=== PATIENT | female | born 1955 | race American Indian/Alaskan Native ===

== ENCOUNTER 2016-06-26 23:47 | Inpatient (IN) | payer MEDICARE ==
[2016-06-27 01:39] LABS: Basophils % (Auto) 1.3 % (0.0-1.8); Eosinophils % (Auto) 4.2 % (0.0-4.3); Hematocrit 38.6 % (30.3-42.9); Hemoglobin 12.8 gm/dl (10.1-14.3); Mean Corpuscular HGB Conc 33 % (30-34); Mean Corpuscular Hemoglobin 32 pg (28-32); Mean Corpuscular Volume 96 fl (79-97); Platelet Count 192 K/mm3 (140-440); Red Blood Count 4.01 M/mm3 (3.65-5.03); Red Cell Distribution Width 13.8 % (13.2-15.2); White Blood Count 4.2 K/mm3 (4.5-11.0)
[2016-06-27 01:56] LABS: Blood Urea Nitrogen 18 mg/dL (7-17); Calcium 9.4 mg/dL (8.4-10.2); Carbon Dioxide 30 mmol/L (22-30); Chloride 101.7 mmol/L (98-107); Glucose 143 mg/dL (65-100); Potassium 3.7 mmol/L (3.6-5.0); Sodium 144 mmol/L (137-145)
[2016-06-27 02:00] LABS: Anion Gap 16 mmol/L
[2016-06-27] MEDS ORDERED: NACL ONE (07:24)
--- NOTE | 2016-06-27 07:29 | Emergency Department Report ---
HPI - General Chief Complaint: Chest Pain Time Seen by Provider: 06/27/16 06:56 - HPI HPI: The patient is a 60-year-old female who presents for valuation of chest pain. The patient reports chest pain for the past one day, midsternal, pressure-like in quality, radiating into the neck and back, 8 out of 10 in severity. The patient denies fever, dyspnea, syncope, hemoptysis, unilateral leg swelling, recent immobilization, history of DVT or PE, recent cancer. She states that she has not received a stress test within the past 10-11 months. ED Past Medical Hx - Past Medical History Previous Medical History?: Yes Hx Hypertension: Yes Hx Congestive Heart Failure: Yes Hx of Cancer: Yes (L radical mastectomy) Additional medical history: defibrillator since , has never fired - Surgical History Past Surgical History?: Yes Hx Breast Surgery: Yes (L radical mastectomy) - Social History Smoking Status: Current Every Day Smoker Substance Use Type: Alcohol ED Review of Systems ROS: Stated complaint: CHEST PAIN Other details as noted in HPI Constitutional: denies: fever ENT: denies: throat or neck pain Respiratory: denies: cough, shortness of breath Cardiovascular: reports chest pain Endocrine: denies unexplained weight loss or gain Gastrointestinal: denies: abdominal pain, nausea Genitourinary: denies: dysuria Musculoskeletal: denies: leg swelling Skin: denies: rash Neurological: denies: headache Hematological/Lymphatic: denies: easy bleeding or easy bruising Psych: denies sadness or hopelessness Physical Exam - Physical Exam Vital Signs: Vital Signs 06/27/16 06/27/16 00:45 06:15 Temperature 98.6 F 98.9 F Pulse Rate 90 85 Respiratory 18 18 Rate Blood Pressure 155/94 Blood Pressure 148/77 [Right] O2 Sat by Pulse 100 99 Oximetry Physical Exam: General: well-nourished, well-developed, no acute distress Head: Normocephalic, atraumatic Eyes: normal sclera ENT: Mucous membranes are pink and moist Neck: trachea midline, neck supple, No neck stiffness, no cervical adenopathy Respiratory: Breath sounds equal bilaterally, no wheezing, rales, or rhonchi Cardio: S1 and S2 present, no murmurs, rubs, gallops, capillary refill is brisk Abdomen: Normoactive bowel sounds, soft abdomen, no rigidity, no guarding or rebound tenderness Musc: No pitting edema Skin: No rash Neuro: no facial drooping, normal speech Psych: Normal affect ED Course Vital Signs 06/27/16 06/27/16 00:45 06:15 Temperature 98.6 F 98.9 F Pulse Rate 90 85 Respiratory 18 18 Rate Blood Pressure 155/94 Blood Pressure 148/77 [Right] O2 Sat by Pulse 100 99 Oximetry ED Medical Decision Making - Lab Data Result diagrams: 06/27/16 01:15 06/27/16 01:15 - Medical Decision Making The patient was seen and examined by myself. The patient is placed on a hall monitor and continuous pulse ox. On initial evaluation, the patient was found to be in no distress. EKG was negative for findings suggestive of acute cardiac infarct. The patient is given an aspirin tablet. The patient is given IV morphine for her chest pain. Labs and imaging are obtained. The patient is given IV morphine for her chest pain. Chest x-ray is negative for pneumothorax , focal consolidation, pulmonary vascular congestion, pleural effusion, or other obvious acute cardiopulmonary disease process. Lab results were non- revealing including negative troponin, WBC, hemoglobin, hematocrit, electrolytes , renal function. CT angiogram of the chest is negative for dissection, pulmonary embolism, or other emergent acute disease process. The patient was reevaluated and reported that their symptoms were improved. As the patient has chest pain and risk factors for development of acute coronary event, the patient will be admitted for close cardiopulmonary monitoring, serial troponins, and evaluation by cardiology. The on-call hospitalist service was contacted. They agreed to admit the patient for further treatment and close monitoring. The ED admit order was placed. The patient was admitted in guarded condition. Critical care attestation.: If time is entered above; I have spent that time in minutes in the direct care of this critically ill patient, excluding procedure time. ED Disposition Clinical Impression: Acute chest pain Disposition: OP ADMITTED IP TO THIS HOSP Is pt being admited?: Yes Does the pt Need Aspirin: Yes Condition: Undetermined Instructions: Chest Pain (ED) Referrals: PRIMARY CARE, [Primary Care Provider] - 3-5 Days Time of Disposition: 08:39
--- NOTE | 2016-06-27 09:30 | Admit Criteria Form ---
Admission Criteria Documentation: CARDIOLOGY GRG Clinical Indications for Admission to Inpatient Care ( Place 'X' for any and all applicable criteria): Hospital admission is needed for appropriate care of the patient because of ANY ONE of the following (1): [ ] I. Hemodynamic instability as indicated by ALL of the following (1)(2)(3) (4)(5) [ ]a) Vital signs or other findings not as expected for chronic patient condition or baseline [ ]b) Instability indicated by ANY ONE of the following: [ ]i) Hypotension [ ]ii) Symptomatic Tachycardia unresponsive to treatment ( e.g., analgesia, fluids, sedation as indicated) [ ]iii) Inadequate perfusion indicated by ANY ONE of the following: [ ] 1) Lactic acidosis (> 2 mmol/L) [ ] 2) New abnormal capillary refill (> 3 seconds) [ ] 3) Reduced urine output [ ] 4) New altered mental status [ ]iv) Orthostatic vital sign changes unresponsive to treatment (e.g., fluids) [ ]v) IV inotropic or vasopressor medication required to maintain adequate blood pressure or perfusion [ ] II. Severe heart failure as indicated by ANY ONE of the following(17)(18) [ ]a) Respiratory distress [ ]b) Hypotension [ ]c) Anasarca (refractory to outpatient therapy) [ ]d) Cardiac arrhythmias of immediate concern [ ]e) Myocardial ischemia [ ] III. Cardiac arrhythmias or findings of immediate concern indicated by ANY ONE of the following (19)(20): [ ] a) Heart rhythms that are inherently dangerous or unstable indicated by ANY ONE of the following (21)(22)(23): [ ] i) Resuscitated ventricular fibrillation or cardiac arrest [ ] ii) Ventricular escape rhythm [ ] iii) Sustained ventricular tachycardia (30 seconds or more of ventricular rhythm at greater than 100 beats per minute) [ ] iv) Nonsustained ventricular tachycardia and ANY ONE of the following: [ ] 1) Suspected cardiac ischemia as cause or consequence of ventricular tachycardia [ ] 2) In setting of acute myocarditis [ ] b) Unstable cardiac conduction defects indicated by ANY ONE of the following(23)(24)(25) [ ] i) Type II second-degree atrioventricular block [ ]ii) Third-degree atrioventricular block [ ]iii) New-onset left bundle branch block with suspected myocardial ischemia [ ]c) Any heart rhythm and ANY ONE of the following (21)(22)(26)(27) (28) [ ] i) Continuous long-term ECG monitoring needed (e.g., initiation of drug requiring monitoring for more than 24 hours) [ ] ii) Patient has automatic implanted cardioverter defibrillator that is repeatedly firing, malfunctioning, or in need of immediate adjustment of settings beyond the scope of ambulatory or observation care [ ]d) Heart rhythms of concern due to ANY ONE of the following: [ ] i) Hypotension [ ] ii) Respiratory distress [ ] iii) Association with other significant symptoms (e.g., bradycardia with syncope or ongoing dizziness, supraventricular tachycardia with chest pain (14)(15)(17) [ ] IV. Monitoring for cardiac contusion beyond the scope of observation care needed [A](30)(31)(32) [ ] V. Surgical or device complication (e.g., valve replacement complication , pacemaker dysfunction) (35)(41)(44)(45)(46) [ ] . Inpatient palliative care needed. [B](49) Also use Inpatient Palliative Care Criteria [ ] VII. Nonbacterial thrombotic (marantic) endocarditis (36)(43)(47)(48) [ X] VIII. Cardiology condition, symptom, or finding for which emergency and observation care has failed or are not considered appropriate. [ ] IX. Acute valvular disease requiring inpatient as indicated by ANY ONE of the following (41) [ ]a) Acute valvular regurgitation (42) [ ]b) Noninfectious valvulitis (43) [ ]c) Obstructive valve thrombosis [ ]d) Paravalvular leak [ ]e) Other significant valvular disorder remaining after emergency or observation level of care (as appropriate) [ ]X. Pericardial disease requiring inpatient treatment as indicated by ANY ONE of the following (33)(34)(35)(36)(37) [ ]a) Suspected tamponade (38)(39)(40) [ ]b) Hemopericardium [ ]c) Other significant pericardial disorder remaining after emergency or observation level of care (as appropriate) [ ] XI. Cardiac ischemia beyond scope of emergency and observation care. [ ] XII. Hypertension requiring inpatient treatment as indicated by ANY ONE of the following (6)(7)(8) [ ]a) SBP greater than 220 mm Hg or DBP greater than 120 mmHg despite treatment [ ]b) SBP greater than 140 mm Hg or DBP greater than 100 mm Hg with evidence of acute end organ damage as indicated by ANY ONE of the following [ ] i) Altered mental status [ ] ii) Acute renal failure as indicated by new onset of ANY ONE of the following (9)(10)(11)(12)(13) [ ]1) 3-fold rise in serum creatinine from baseline [ ]2) Serum creatinine greater than 4 mg/dL ( 354 micromoles/L) with acute rise greater than 0.5 mg/dL (44.2 micromoles/L) [ ]3) Reduction of more than 75% in estimated glomerular filtration rate from baseline [ ]4) Estimated glomerular filtration rate less than 35 mL/min/1.73m2 (0.59 mL/sec/1.73m2) in child up to 18 years of age [ ]5) Cessation of urine output indicated by ALL of the following [ ]A. Adequate volume status [ ]B. Inadequate urine output as indicated by ANY ONE of the following [ ]a. Urine output less than 0.3 mL/kg/hr for 24 hours [ ]b. Anuria (urine output less than 0.1 mL/kg/hr) for 12 hours [ ] iii) Aortic dissection [ ] iv) Myocardial Ischemia [ ] v) Left ventricular heart failure [ ]vi) Retinal Hemorrhage [ ]vii) Other significant finding [ ]c) Hypertension in child requiring inpatient treatment as indicated by ALL of the following(14)(15)(16) [ ] i) Outpatient treatment not effective, not available, or not appropriate [ ]ii) SBP or DBP greater than 95th percentile for age [ ]iii) Evidence of acute end organ damage as indicated by ANY ONE of the following [ ]1) Altered mental status [ ]2) Acute renal failure as indicated by new onset of ANY ONE of the following(9)(10)(11)(12)(13) [ ]A. 3-fold rise in serum creatinine from baseline [ ]B. Serum creatinine greater than 4 mg/dL (354 micromoles/L) with acute rise greater than 0.5 mg/dL (44.2 micromoles/L) [ ]C. Reduction of more than 75% in estimated glomerular filtration rate from baseline [ ]D. Estimated glomerular filtration rate less than 35 mL/min/1.73m2 (0.59 mL/sec/1.73m2) in child up to 18 years of age [ ]E. Cessation of urine output indicated by ALL of the following [ ]a. Adequate volume status [ ]b. Inadequate urine output as indicated by ANY ONE of the following [ ]i) Urine output less than 0.3 mL/kg/hr for 24 hours [ ]ii) Anuria ( urine output less than 0.1 mL/kg/hr) for 12 hours [ ]3) Severe headache [ ]4) Visual disturbance [ ]5) Retinal hemorrhage [ ]6) Other significant finding [ ]XIII. Complications of transplanted heart indicated by ANY ONE of the following(61): [ ]a) Acute graft rejection requiring inpatient management (eg, intravenous immunosuppression)(62)(63) [ ]b) Acute graft heart failure indicated by ANY ONE of the following(64): [ ]i) Hemodynamic instability [ ]ii) Cardiac arrhythmias of immediate concern [ ]iii) Pulmonary edema that is very severe (eg, mechanical ventilation needed, imminent or likely, need for 100% oxygen to keep oxygen saturation above 90%) [ ]iv) Pulmonary edema that is persistent as indicated by ALL of the following: [ ]1) New need for oxygen therapy to keep oxygen saturation above 90% (or increased FiO2 need from baseline) [ ]2) Has not improved sufficiently with emergency department or observation care IV diuretics or other heart failure treatments[E] [ ]v) Altered mental status that is severe or persistent [ ]vi) Increased creatinine (new on laboratory test) with reduction of more than 50% in estimated glomerular filtration rate from baseline [ ]vii) Progressively (ongoing) rising creatinine (known from past laboratory test) with reduction of more than 25% in estimated glomerular filtration rate from baseline [ ]viii) Acute renal failure [ ]ix) Acute peripheral ischemia (eg, examination shows pulseless, cool, mottled, or cyanotic extremity) [ ]x) Pulmonary artery catheter monitoring needed [ ]xi) Other sign or symptom of heart failure requiring inpatient treatment (ie, too severe or not responsive to outpatient and observation care treatment) [ ]c) Infection requiring inpatient management (eg, Hemodynamic instability, need for intravenous antimicrobial treatment)(66)(67)(68)(69)(70) [ ]d) Cardiac allograft vasculopathy requiring inpatient management ( eg evidence of cardiac ischemia)(71) [ ]e) Other complication of transplanted heart (eg, stroke, severe pulmonary hypertension, severe valvular dysfunction) requiring inpatient management(72) The original [facility] [employer] content created by [facility] has been revised. The portions of the content which have been revised are identified through the use of italic text or in bold, and [facility] has neither reviewed nor approved the modified material. All other unmodified content is copyright [email or web address]. Please see references footnoted in the original [email or web address] edition 2016 Admission Criteria Met: Yes
[2016-06-27] MEDS ORDERED: ZOFRAN IV ONE (10:38)
[2016-06-27] MEDS ORDERED: BABY ASPIRIN PO ONE (10:38)
[2016-06-27] MEDS ORDERED: MORPHINE IV ONE (10:38)
--- NOTE | 2016-06-27 10:46 | Cat Scan Report ---
CTA CHEST: INDICATION: Chest pain. Breast cancer, left mastectomy. COMPARISON: 02/02/2016 PET/CT images. FINDINGS: Chest CTA performed following intravenous administration of 100 cc of Omnipaque 350. Rotational MIP's also obtained. Mild cardiomegaly again noted as also right AICD with single ventricular lead, creating some streak artifact. Mild aortic arch calcifications. No effusions or size significant adenopathy. Patent airway. Unremarkable great vessels without suspicious pulmonary arterial filling defects, to the extent assessed. Stable thyroid. Mild scarring in inferior aspect of the left upper lobe and in the right middle lobe again noted as also an approximately 1.6 cm left upper lobe pneumatocele posteriorly. No focal suspicious lung masses. Nonspecific distal esophageal wall thickening, not excluded for gastroesophageal reflux and/or hiatal hernia, amongst others. Left mastectomy also again noted. Stable approximately 2 cm slightly heterogeneous right adrenal benign mass/nodule, also unchanged since March 2009 CT. Multilevel thoracic spondylosis, including spurring and disc narrowing. Approximately 1.3 cm craniocaudal elongated sclerotic focus in T7 vertebral body on the right is also stable since 2008. CONCLUSION: No acute chest CT abnormality or evidence of pulmonary embolism with various stable incidental findings, as above. Thank you for the opportunity to participate in this patient's care.
[2016-06-27] MEDS ORDERED: TYLENOL PO ONE (10:53)
--- NOTE | 2016-06-27 11:35 | History and Physical Report ---
History of Present Illness Date of examination: 06/27/16 Date of admission: 06/27/16 Chief complaint: chest pain History of present illness: Patient is 60-year-old with history of cardiomyopathy, status post AICD placement, CHF, hypertension. She presents with chest pain for 3 days. chest pain is 8 out of 10 sometimes sharp sometimes like a pressure. On questioning and asking her to point, pain is in junction between, the mid lower chest and upper epigastric region. Chest pain is worse on exertion and is also sometimes worse on eating. She also complains of a headache she denies any fever. Chest pain sometimes associates it with shortness of breath. In ED, 2 sets of cardiac enzymes are negative. Past History Past Medical History: heart failure (chronic systolic CHF), hypertension, other (Cardiomyopathy s/p AICD placement) Past Surgical History: mastectomy, Other (AICD in 2008, ulnar nerve surg) Social history: single, smoking (smoke half pack ciagerettes daily), alcohol abuse (ocassionally), full code Family history: cancer, diabetes Medications and Allergies Allergies Allergy/AdvReac Type Severity Reaction Status Date / Time No Known Allergies Allergy Verified 06/27/16 07:30 Review of Systems All systems: negative (No fever, no urinaru symptoms,no cough. All other systems reviewed and neg) Exam - Constitutional Vitals: Temp Pulse Resp BP Pulse Ox 98.9 F 80 16 147/82 99 06/27/16 06:15 06/27/16 10:35 06/27/16 10:35 06/27/16 10:35 06/27/16 06:15 General appearance: Present: no acute distress, well-nourished - EENT Eyes: Present: PERRL, EOM intact ENT: hearing intact, clear oral mucosa - Neck Neck: Present: supple, normal ROM - Respiratory Respiratory effort: normal Respiratory: bilateral: CTA, negative: diminished, rales, rhonchi, wheezing - Cardiovascular Rhythm: regular Heart Sounds: Present: S1 & S2 (s1 and S2 reg, no murmurs rubs or gallops) - Extremities Extremities: no ischemia, No edema, normal temperature, normal color - Abdominal General gastrointestinal: Present: soft, tender (tender epigastric region), non- distended, normal bowel sounds Localized gastrointestinal: tender: epigastric periumbilical - Integumentary Integumentary: Present: clear, warm, dry - Musculoskeletal Musculoskeletal: strength equal bilaterally - Psychiatric Psychiatric: appropriate mood/affect, intact judgment & insight - Neurologic Neurologic: moves all extremities, other (AAO x 3, no focal neurologic signs) Results - Labs CBC & Chem 7: 06/27/16 01:15 06/27/16 01:15 Labs: Abnormal lab results 06/27/16 06/27/16 Range/Units 01:15 01:15 WBC 4.2 L (4.5-11.0) K/mm3 [place] % (Auto) 8.2 H (0.0-7.3) % BUN 18 H (7-17) mg/dL Glucose 143 H (65-100) mg/dL Assessment and Plan Chest pain. Admit to rule out acute coronary syndrome. Two sets of cardiac enzymes are negative. Continue aspirin. Add Nitropaste topically. Consult Dr. Luna her manager cost Epigastric pain. The chest pain she is referring to is actually in the junction between the lower chest and upper epigastric region. May be due to GERD or gastritis, in addition to poss acute coronary syndrome. Start Protonix daily. She may need GI evaluated him as an outpatient. Cardiomyopathy status post AICD placement Chronic systolic CHF. There is no acute exacerbation. Home med list is not yet available. We'll start Coreg 6.25 mg by mouth twice a day Hypertension. BP stable. History of breast cancer. DVT prophylaxis with heparin Full CODE STATUS. Hospitalist to reconcile home meds when list available.
[2016-06-27] MEDS ORDERED: DULCOLAX PR PRN (11:36)
[2016-06-27] MEDS ORDERED: TYLENOL PO PRN (11:36)
[2016-06-27] MEDS ORDERED: ZOFRAN IV PRN (11:36)
[2016-06-27] MEDS ORDERED: NORCO 5/325 PO PRN (11:41)
[2016-06-27] MEDS ORDERED: NITROSTAT SL PRN (11:42)
[2016-06-27] MEDS ORDERED: SODIUM CHLORIDE FLUSH SYRINGE 10 ML IV PRN (11:42)
[2016-06-27] MEDS: NITRO-BID 2% TP SCH ×2 (12:08→19:40)
[2016-06-27] MEDS: PROTONIX PO SCH (12:09)
--- NOTE | 2016-06-27 12:47 | Consultation ---
History of Present Illness Consult date: 06/27/16 Requesting physician: JACQUELIN ARMAS Consult reason: chest pain History of present illness: The patient is a 60 year old female who is followed by Dr. Blair in the office with a history of chronic systolic heart failure, non-ischemic cardiomyopathy s/ p ICD, hypertension, tobacco use who presented with complaints of substernal chest pain ongoing for the past 3 days. The describes the pain as both sharp and pressure like and states that it has been constant but is worse after eating and swallowing. Radiation to her right neck. She has chronic shortness of breath and dyspnea on exertion which is unchanged. Troponin negative x 2. Chest CTA unremarkable. Cardiac cath done in 2007 revealed normal coronaries. Stress test done 06/2013 was negative for ischemia. Echo done 06/2013 showed EF 35 %. Past History Past Medical History: heart failure (chronic systolic), hypertension, other ( breast CA, non-ischemic cardiomyopathy) Past Surgical History: mastectomy, Other (AICD implantation ) Social history: smoking (smokes 1/2 PPD). denies: alcohol abuse, prescription drug abuse, IV drug use Family history: no significant family history Medications and Allergies Allergies Allergy/AdvReac Type Severity Reaction Status Date / Time No Known Allergies Allergy Verified 06/27/16 07:30 Active Meds: Active Medications Acetaminophen (Tylenol) 650 mg PO Q4H PRN PRN Reason: Pain MILD(1-3)/Fever >100.5/MAO Acetaminophen/Hydrocodone Bitart ([place]arrison 5/325) 1 each PO Q6H PRN PRN Reason: Pain, Moderate (4-6) Aspirin (Ecotrin) 325 mg PO QDAY RUTHY Bisacodyl (Dulcolax) 10 mg DE QDAY PRN PRN Reason: Constipation unrelieved by MOM Heparin Sodium (Porcine) (Heparin) 5,000 unit SUB-Q Q8HR RUTHY Magnesium Hydroxide (Milk Of Magnesia) 30 ml PO Q4H PRN PRN Reason: Constipation Nitroglycerin (Nitrostat) 0.4 mg SL Q5M PRN PRN Reason: Chest Pain Nitroglycerin (Nitro-Bid 2%) 0.5 inch TP Q6H RUTHY PRN Reason: Protocol Last Admin: 06/27/16 12:08 Dose: 0.5 inch Ondansetron HCl (Zofran) 4 mg IV Q8H PRN PRN Reason: nausea or vomiting Pantoprazole Sodium (Protonix) 40 mg PO QDAY RUTHY Last Admin: 06/27/16 12:09 Dose: 40 mg Sodium Chloride (Sodium Chloride Flush Syringe 10 Ml) 10 ml IV PRN PRN PRN Reason: LINE FLUSH Review of Systems Constitutional: no fever, no chills Ears, nose, mouth and throat: no nasal congestion, no nasal discharge, no sinus pressure Cardiovascular: chest pain, shortness of breath, dyspnea on exertion Respiratory: shortness of breath, dyspnea on exertion, no congestion, no wheezing Gastrointestinal: no abdominal pain, no nausea, no vomiting, no diarrhea, no constipation Genitourinary Female: no dysuria, no urgency Musculoskeletal: no neck stiffness, no neck pain, no myalgias Integumentary: no rash, no pruritis Neurological: no parathesias, no numbness, no tingling, no headaches Endocrine: no cold intolerance, no heat intolerance Hematologic/Lymphatic: no easy bruising, no easy bleeding Allergic/Immunologic: no urticaria, no wheezing Physical Examination Vital Signs Temp Pulse Resp BP Pulse Ox 98.6 F 90 18 155/94 100 06/27/16 00:45 06/27/16 00:45 06/27/16 00:45 06/27/16 00:45 06/27/16 00:45 General appearance: no acute distress HEENT: Positive: PERRL, Normocephaly, Mucus Membranes Moist Neck: Positive: neck supple, trachea midline Cardiac: Positive: Reg Rate and Rhythm, S1/S2 Lungs: Positive: clear to auscultation Neuro: Positive: Grossly Intact Abdomen: Positive: Soft, Active Bowel Sounds. Negative: Tender Skin: Positive: Clear. Negative: Rash Extremities: Present: normal. Absent: edema Results 06/27/16 01:15 06/27/16 01:15 CBC 06/27/16 Range/Units 01:15 WBC 4.2 L (4.5-11.0) K/mm3 RBC 4.01 (3.65-5.03) M/mm3 Hgb 12.8 (10.1-14.3) gm/dl Hct 38.6 (30.3-42.9) % Plt Count 192 (140-440) K/mm3 Lymph # 1.4 (1.2-5.4) K/mm3 [place] # 0.3 (0.0-0.8) K/mm3 Eos # 0.2 (0.0-0.4) K/mm3 Baso # 0.1 (0.0-0.1) K/mm3 Comprehensive Metabolic Panel 06/27/16 Range/Units 01:15 Sodium 144 (137-145) mmol/L Potassium 3.7 (3.6-5.0) mmol/L Chloride 101.7 (98-107) mmol/L Carbon Dioxide 30 (22-30) mmol/L BUN 18 H (7-17) mg/dL Creatinine 0.9 (0.7-1.2) mg/dL Glucose 143 H (65-100) mg/dL Calcium 9.4 (8.4-10.2) mg/dL - Imaging and Cardiology Echo: pending EKG: image reviewed EKG interpretations - Telemetry EKG Rhythm: Sinus Rhythm - EKG Sinus rhythms and dysrhythmias: sinus rhythm Chamber hypertrophy or enlargement: left ventricular hypertro Repolarization changes or abnormalities: repolarization abn secondary to ventricular hypertrophy Assessment and Plan Atypical chest pain, possibly GI related? troponin negative x 2 no acute EKG changes obtain echo Lexiscan thallium stress test in am Chronic systolic heart failure EF ~ 35% in 2013 currently euvolemic await repeat echo findings continue coreg, losartan Non-ischemic cardiomyopathy [facility] 2007: normal coronaries Hypertension stable continue coreg, losartan Tobacco use counselled on cessation Await echo findings. Lexiscan thallium stress test in am. Further recommendations to follow. The patient has been seen in conjunction with Dr. Adams who agrees with the assessment and plan of care. Thank you Dr. Armas for allowing us to participate in the care of this patient.
[2016-06-27] MEDS: HEPARIN SUB-Q SCH (14:06)
[2016-06-27 14:59] LABS: Creatine Kinase MB 1.9 ng/mL (0.0-4.0)
[2016-06-27 15:01] LABS: Creatine Kinase 69 units/L (30-135)
[2016-06-27] MEDS: COREG PO SCH (16:59)
--- NOTE | 2016-06-27 17:33 | Echocardiography Report ---
Transthoracic Echocardiogram Indication: Chest pain BP: 125/67 Conclusions *Moderate global hypokinesis of the left ventricle is observed. *The estimated ejection fraction is 35-40%. *Abnormal left ventricular diastolic filling is observed, consistent with impaired relaxation. *The left atrium is mildly dilated. *The right ventricular global systolic function is normal. *The right atrium appears normal. *A pacemaker wire is visualized in the right atrium. *There is trace of aortic regurgitation. *There is mild mitral regurgitation. *There is moderate tricuspid regurgitation. *The right ventricular systolic pressure is calculated at 55 mmHg. *There is evidence of moderate pulmonary hypertension. *The inferior vena cava appears normal in size. *A pacemaker wire is visualized in the right ventricle. Findings Left Ventricle: The left ventricular chamber size is normal. Moderate global hypokinesis of the left ventricle is observed. Global left ventricular systolic function is moderately decreased. The estimated ejection fraction is 35-40%. Abnormal left ventricular diastolic filling is observed, consistent with impaired relaxation. Left Atrium: The left atrium is mildly dilated. Right Ventricle: The right ventricular cavity size is normal. The right ventricular global systolic function is normal. A pacemaker wire is visualized in the right ventricle. Right Atrium: The right atrium appears normal. A pacemaker wire is visualized in the right atrium. The interatrial septum appears normal. Aortic Valve: The aortic valve structure is normal. There is trace of aortic regurgitation. There is no evidence of aortic stenosis. Mitral Valve: The mitral valve leaflets appear normal. There is mild mitral regurgitation. There is no evidence of mitral stenosis. Tricuspid Valve: The tricuspid valve leaflets are normal. There is moderate tricuspid regurgitation. The right ventricular systolic pressure is calculated at 55 mmHg. There is evidence of moderate pulmonary hypertension. There is no tricuspid stenosis. Pulmonic Valve: The pulmonic valve appears normal. There is no evidence of pulmonic regurgitation. There is no pulmonic stenosis. Pericardium: There is no pericardial effusion. Aorta: There is no dilatation of the ascending aorta. There is no dilatation of the aortic arch. There is no dilatation of the descending thoracic aorta. There is no dilatation of the aortic root. Venous: The inferior vena cava appears normal in size. Measurements Chambers MM Name Value Normal Range Ao root diameter (MM) 2.7 cm (2 - 3.7) LA dimension (AP) MM 3.8 cm (1.9 - 4) LA:Ao ratio (MM) 1.41 ratio - AV cusp separation (MM) 1.7 cm (1.5 - 2.6) Chambers 2D Name Value Normal Range IVSd (2D) 1.46 cm (0.6 - 1.1) LVPWd (2D) 1.44 cm (0.6 - 1.1) IVS:LVPW ratio (2D) 1.01 ratio - LVIDd (2D) 5.3 cm (3.7 - 5.6) LVIDs (2D) 4.08 cm (2 - 3.8) LV FS (Teichholz) (2D) 23 % - LV FS (cube) (2D) 23 % - EF Teichholz (2D) 45.6 % - LA dimension (AP) 2D 3.7 cm (1.9 - 4) Volumes/Mass Name Value Normal Range LA ESV SP 4CH (MOD) 42 ml - LA ESV SP 2CH (MOD) 57 ml - LA ESV BP (MOD) 50 ml - LA ESV BP (MOD) index 39.1 ml/m2 - LV EDV SP 4CH (MOD) 67 ml - LV ESV SP 4CH (MOD) 44 ml - EF SP 4CH (MOD) 34 % - LV EDV SP 2CH (MOD) 84 ml - LV ESV SP 2CH (MOD) 53 ml - EF SP 2CH (MOD) 37 % - LV EDV BP 78 ml - LV ESV BP 51 ml - BP EF (MOD) 35 % - Diastolic/Systolic Function Name Value Normal Range MV E-wave Vmax 0.65 m/sec - MV deceleration time 190 msec - MV A-wave Vmax 0.85 m/sec - MV E:A ratio 0.8 ratio - LV septal e' Vmax 0.04 m/sec - LV lateral e' Vmax 0.04 m/sec - LV E:e' septal ratio 16.3 ratio - LV E:e' lateral ratio 17.6 ratio - Aortic Valve Name Value Normal Range AV VTI 31.9 cm - AV mean gradient 7 mmHg - LVOT diameter 2 cm - LVOT VTI 18.4 cm - LVOT mean gradient 2 mmHg - SV LVOT 58 ml - JOSE (continuity VTI) 1.81 cm2 - Mitral Valve Name Value Normal Range MV PHT 50 msec - MR Vmax 5.23 m/sec - MVA (PHT) 4.4 cm2 - Tricuspid Valve Name Value Normal Range TR Vmax 3.6 m/sec - TR peak gradient 52 mmHg - RAP 3 mmHg - RVSP 55 mmHg - Pulmonic Valve/Qp:Qs Name Value Normal Range PV Vmax 0.84 m/sec - PV peak gradient 3 mmHg - PV acceleration time 162 msec -
[2016-06-27] MEDS: MILK OF MAGNESIA PO PRN (18:13)
[2016-06-28] MEDS: NITRO-BID 2% TP SCH ×4 (00:02→17:26)
[2016-06-28] MEDS: HEPARIN SUB-Q SCH ×4 (00:02→21:36)
[2016-06-28 06:01] LABS: Hematocrit 38.2 % (30.3-42.9); Hemoglobin 12.5 gm/dl (10.1-14.3); Mean Corpuscular HGB Conc 33 % (30-34); Mean Corpuscular Hemoglobin 32 pg (28-32); Mean Corpuscular Volume 98 fl (79-97); Platelet Count 172 K/mm3 (140-440); Red Blood Count 3.92 M/mm3 (3.65-5.03); Red Cell Distribution Width 13.8 % (13.2-15.2); White Blood Count 3.1 K/mm3 (4.5-11.0)
[2016-06-28 06:19] LABS: Anion Gap 15 mmol/L; BUN/Creatinine Ratio 22.85; Blood Urea Nitrogen 16 mg/dL (7-17); Calcium 8.8 mg/dL (8.4-10.2); Carbon Dioxide 27 mmol/L (22-30); Chloride 106.6 mmol/L (98-107); Glucose 86 mg/dL (65-100); Potassium 4.2 mmol/L (3.6-5.0); Sodium 144 mmol/L (137-145)
[2016-06-28 06:49] LABS: Blastocytes % (Manual) 0 %; Diff Status Complete; Platelet Estimate Consistent w Auto; RBC Morphology Normal
--- NOTE | 2016-06-28 09:55 | Progress Note ---
Assessment and Plan Assessment and plan: 1. Atypical chest pain. etiology may possibly be GI related. Patient has troponin negative x 3. Patient with no acute EKG changes. Await echocardiogram. Patient currently refuses a Lexiscan thallium stress test. Cardiology to discuss plan of care. 2. Chronic systolic heart failure EF ~ 35% in 2013. Continue coreg, losartan. Await echocardiogram. 3. Non-ischemic cardiomyopathy.patient with left heart catheterization in 2007 that was found to be normal. 4. Hypertension. Continue current antihypertensive medications. 5. Tobacco use. Patient has been counseled on cessation. 6. Epigastric pain. Etiology may be secondary to GERD or gastritis. Continue Protonix. GI evaluation as an outpatient. 7. History of breast cancer. 8. DVT prophylaxis. Continue anticoagulation. History Interval history: The patient is a 60 year old female who is followed by Dr. Blair in the office with a history of chronic systolic heart failure, non-ischemic cardiomyopathy s/ p ICD, hypertension, tobacco use who presented with complaints of substernal chest pain ongoing for the past 3 days prior to admission. Patient was scheduled for stress thallium this morning however refused. Patient believes he had a recent stress thallium. Patient currently denied any chest pain. Hospitalist Physical - Constitutional Vitals: Temp Pulse Resp BP Pulse Ox 98.3 F 72 18 150/67 97 06/28/16 08:30 06/28/16 08:30 06/28/16 08:30 06/28/16 08:30 06/28/16 08:31 General appearance: Present: no acute distress - EENT Eyes: Present: PERRL, EOM intact ENT: hearing intact, clear oral mucosa, dentition normal - Neck Neck: Present: supple, normal ROM - Respiratory Respiratory effort: normal Respiratory: bilateral: CTA - Cardiovascular Rhythm: regular Heart Sounds: Present: S1 & S2. Absent: gallop, rub - Extremities Extremities: no ischemia, No edema, Full ROM - Abdominal General gastrointestinal: soft, non-tender, non-distended, normal bowel sounds - Integumentary Integumentary: Present: clear, warm, dry - Neurologic Neurologic: CNII-XII intact, moves all extremities Results - Labs CBC & Chem 7: 06/28/16 05:01 06/28/16 05:01 Labs: Laboratory Last Values WBC 3.1 K/mm3 (4.5-11.0) L 06/28/16 05:01 RBC 3.92 M/mm3 (3.65-5.03) 06/28/16 05:01 Hgb 12.5 gm/dl (10.1-14.3) 06/28/16 05:01 Hct 38.2 % (30.3-42.9) 06/28/16 05:01 MCV 98 fl (79-97) H 06/28/16 05:01 MCH 32 pg (28-32) 06/28/16 05:01 MCHC 33 % (30-34) 06/28/16 05:01 RDW 13.8 % (13.2-15.2) 06/28/16 05:01 Plt Count 172 K/mm3 (140-440) 06/28/16 05:01 Lymph % (Auto) 33.4 % (13.4-35.0) 06/27/16 01:15 Avery % (Auto) 8.2 % (0.0-7.3) H 06/27/16 01:15 Eos % (Auto) 4.2 % (0.0-4.3) 06/27/16 01:15 Baso % (Auto) Apprentice Lineman Third Step 06/28/16 05:01 Lymph # 1.4 K/mm3 (1.2-5.4) 06/27/16 01:15 Avery # 0.3 K/mm3 (0.0-0.8) 06/27/16 01:15 Eos # 0.2 K/mm3 (0.0-0.4) 06/27/16 01:15 Baso # 0.1 K/mm3 (0.0-0.1) 06/27/16 01:15 Add Manual Diff Complete 06/28/16 05:01 Total Counted 100 06/28/16 05:01 Seg Neutrophils % Apprentice Lineman Third Step 06/28/16 05:01 Seg Neuts % (Manual) 30.0 % (40.0-70.0) L 06/28/16 05:01 Band Neutrophils % 0 % 06/28/16 05:01 Lymphocytes % (Manual) 45.0 % (13.4-35.0) H 06/28/16 05:01 Reactive Lymphs % (Man) 0 % 06/28/16 05:01 Monocytes % (Manual) 14.0 % (0.0-7.3) H 06/28/16 05:01 Eosinophils % (Manual) 7.0 % (0.0-4.3) H 06/28/16 05:01 Basophils % (Manual) 4.0 % (0.0-1.8) H 06/28/16 05:01 Metamyelocytes % 0 % 06/28/16 05:01 Myelocytes % 0 % 06/28/16 05:01 Promyelocytes % 0 % 06/28/16 05:01 Blast Cells % 0 % 06/28/16 05:01 Nucleated RBC % Not Reportable 06/28/16 05:01 Seg Neutrophils # 2.2 K/mm3 (1.8-7.7) 06/27/16 01:15 Seg Neutrophils # Man 0.9 K/mm3 (1.8-7.7) L 06/28/16 05:01 Band Neutrophils # 0.0 K/mm3 06/28/16 05:01 Lymphocytes # (Manual) 1.4 K/mm3 (1.2-5.4) 06/28/16 05:01 Abs React Lymphs (Man) 0.0 K/mm3 06/28/16 05:01 Monocytes # (Manual) 0.4 K/mm3 (0.0-0.8) 06/28/16 05:01 Eosinophils # (Manual) 0.2 K/mm3 (0.0-0.4) 06/28/16 05:01 Basophils # (Manual) 0.1 K/mm3 (0.0-0.1) 06/28/16 05:01 Metamyelocytes # 0.0 K/mm3 06/28/16 05:01 Myelocytes # 0.0 K/mm3 06/28/16 05:01 Promyelocytes # 0.0 K/mm3 06/28/16 05:01 Blast Cells # 0.0 K/mm3 06/28/16 05:01 WBC Morphology Not Reportable 06/28/16 05:01 Hypersegmented Neuts Not Reportable 06/28/16 05:01 Hyposegmented Neuts Not Reportable 06/28/16 05:01 Hypogranular Neuts Not Reportable 06/28/16 05:01 Smudge Cells Not Reportable 06/28/16 05:01 Toxic Granulation Not Reportable 06/28/16 05:01 Toxic Vacuolation Not Reportable 06/28/16 05:01 Dohle Bodies Not Reportable 06/28/16 05:01 Pelger-Huet Anomaly Not Reportable 06/28/16 05:01 Georgina Rods Not Reportable 06/28/16 05:01 Platelet Estimate Consistent w auto 06/28/16 05:01 Clumped Platelets Not Reportable 06/28/16 05:01 Plt Clumps, EDTA Not Reportable 06/28/16 05:01 Large Platelets Not Reportable 06/28/16 05:01 Giant Platelets Not Reportable 06/28/16 05:01 Platelet Satelliting Not Reportable 06/28/16 05:01 Plt Morphology Comment Not Reportable 06/28/16 05:01 RBC Morphology Normal 06/28/16 05:01 Dimorphic RBCs Not Reportable 06/28/16 05:01 Polychromasia Not Reportable 06/28/16 05:01 Hypochromasia Not Reportable 06/28/16 05:01 Poikilocytosis Not Reportable 06/28/16 05:01 Anisocytosis Not Reportable 06/28/16 05:01 Microcytosis Not Reportable 06/28/16 05:01 Macrocytosis Not Reportable 06/28/16 05:01 Spherocytes Not Reportable 06/28/16 05:01 Pappenheimer Bodies Not Reportable 06/28/16 05:01 Sickle Cells Not Reportable 06/28/16 05:01 Target Cells Not Reportable 06/28/16 05:01 Tear Drop Cells Not Reportable 06/28/16 05:01 Ovalocytes Not Reportable 06/28/16 05:01 Helmet Cells Not Reportable 06/28/16 05:01 Youssef-[place] Bodies Not Reportable 06/28/16 05:01 [place] Rings Not Reportable 06/28/16 05:01 Ragland Cells Not Reportable 06/28/16 05:01 Bite Cells Not Reportable 06/28/16 05:01 Crenated Cell Not Reportable 06/28/16 05:01 Elliptocytes Not Reportable 06/28/16 05:01 Acanthocytes (Spur) Not Reportable 06/28/16 05:01 Rouleaux Not Reportable 06/28/16 05:01 Hemoglobin C Crystals Not Reportable 06/28/16 05:01 Schistocytes Not Reportable 06/28/16 05:01 Malaria parasites Not Reportable 06/28/16 05:01 Luis Bodies Not Reportable 06/28/16 05:01 Hem Pathologist Commnt No 06/28/16 05:01 Sodium 144 mmol/L (137-145) 06/28/16 05:01 Potassium 4.2 mmol/L (3.6-5.0) 06/28/16 05:01 Chloride 106.6 mmol/L (98-107) 06/28/16 05:01 Carbon Dioxide 27 mmol/L (22-30) 06/28/16 05:01 Anion Gap 15 mmol/L 06/28/16 05:01 BUN 16 mg/dL (7-17) 06/28/16 05:01 Creatinine 0.7 mg/dL (0.7-1.2) 06/28/16 05:01 Estimated GFR > 60 ml/min 06/28/16 05:01 BUN/Creatinine Ratio 22.85 % 06/28/16 05:01 Glucose 86 mg/dL (65-100) 06/28/16 05:01 Calcium 8.8 mg/dL (8.4-10.2) 06/28/16 05:01 Total Creatine Kinase 69 units/L (30-135) 06/27/16 14:27 CK-MB (CK-2) 1.9 ng/mL (0.0-4.0) 06/27/16 14:27 CK-MB (CK-2) Rel Index 2.7 (0-4) 06/27/16 14:27 Troponin T < 0.010 ng/mL (0.00-0.029) 06/27/16 14:27
--- NOTE | 2016-06-28 10:12 | Progress Note ---
Assessment and Plan Atypical chest pain, possibly GI related? troponin negative x 3 no acute EKG changes Echo 06/2016: EF 35-40%, impaired relaxation, RVSP 55mmHg, moderate TR stress MPI 06/2013: no ischemia [facility] 2007: normal coronaries Chronic systolic heart failure EF 35-40% currently euvolemic continue coreg, losartan Non-ischemic cardiomyopathy [facility] 2007: normal coronaries Hypertension stable continue coreg, losartan Tobacco use counselled on cessation Given atypical chest pain and negative cardiac enzymes, recommend continuing medical management. The patient is stable from a cardiac standpoint to proceed with endoscopy if indicated. The patient has been seen in conjunction with Dr. Adams who agrees with the assessment and plan of care. Subjective Date of service: 06/28/16 Principal diagnosis: atypical chest pain Interval history: The patient is resting in bed. She continues to c/o epigastric discomfort that is worse with swallowing. Objective Last Vital Signs Temp 98.3 F 06/28/16 08:30 Pulse 72 06/28/16 08:30 Resp 18 06/28/16 08:30 BP 150/67 06/28/16 08:30 Pulse Ox 97 06/28/16 08:31 - Physical Examination General: No Apparent Distress HEENT: Positive: PERRL, Normocephaly, Mucus Membranes Moist Neck: Positive: neck supple, trachea midline Cardiac: Positive: Reg Rate and Rhythm, S1/S2 Lungs: Positive: Normal Exam Neuro: Positive: Grossly Intact Abdomen: Positive: Soft, Active Bowel Sounds. Negative: Tender Skin: Positive: Clear. Negative: Rash Extremities: Present: normal. Absent: edema - Labs and Meds Cardiac Enzymes 06/27/16 Range/Units 14:27 CK-MB (CK-2) 1.9 (0.0-4.0) ng/mL CBC 06/28/16 Range/Units 05:01 WBC 3.1 L (4.5-11.0) K/mm3 RBC 3.92 (3.65-5.03) M/mm3 Hgb 12.5 (10.1-14.3) gm/dl Hct 38.2 (30.3-42.9) % Plt Count 172 (140-440) K/mm3 Comprehensive Metabolic Panel 06/28/16 Range/Units 05:01 Sodium 144 (137-145) mmol/L Potassium 4.2 (3.6-5.0) mmol/L Chloride 106.6 (98-107) mmol/L Carbon Dioxide 27 (22-30) mmol/L BUN 16 (7-17) mg/dL Creatinine 0.7 (0.7-1.2) mg/dL Glucose 86 (65-100) mg/dL Calcium 8.8 (8.4-10.2) mg/dL - Imaging and Cardiology EKG: image reviewed Echo: report reviewed (06/2016: EF 35-40%, impaired relaxation, RVSP 55mmHg, moderate TR) - Telemetry EKG Rhythm: Sinus Rhythm - EKG Sinus rhythms and dysrhythmias: sinus rhythm Chamber hypertrophy or enlargement: left ventricular hypertro Repolarization changes or abnormalities: repolarization abn secondary to ventricular hypertrophy
[2016-06-28] MEDS: PROTONIX PO SCH (10:37)
[2016-06-28] MEDS: ECOTRIN PO SCH (10:37)
[2016-06-28] MEDS: COZAAR PO SCH (10:37)
[2016-06-28] MEDS: COREG PO SCH ×3 (10:37→21:34)
--- NOTE | 2016-06-28 17:05 | Gastroenterology Consultation ---
History of Present Illness - Reason for Consult Consult date: 06/28/16 Atypical Chest Pain Requesting physician: DAMIAN VERMA - History of Present Illness The patient is a 60 yo female with non-cardiogenic chest pain (per cards eval) admitted with R/O NM. She does have cardiac dysfunction (see reports) but her enzymes have been negative. She describes substernal pain and burning, especially with swallowing food. There is mild dysphagia for meats and pills. She has never had an upper endoscopy; she has had a colonoscopy over 5 years ago. She does have a hx of breast CA (a full-body PET was negative 6 months ago ), and is a current smoker. She used to take prilosec in the past, and had few symptoms; now she uses mustard extract and this works to acutely calm down the symptoms, but does not completely resolve them. She has no family hx of esophageal cancer. There has been no hematemesis, and no severe dyspepsia. She has not had any abnormal loss of weight. Past History Past Medical History: GERD, heart failure (chronic systolic), hypertension, other (breast CA, non-ischemic cardiomyopathy) Past Surgical History: mastectomy, Other (AICD implantation ) Social history: smoking (smokes 1/2 PPD). denies: alcohol abuse, prescription drug abuse, IV drug use Family history: no significant family history Medications and Allergies Allergies Allergy/AdvReac Type Severity Reaction Status Date / Time No Known Allergies Allergy Verified 06/27/16 07:30 Home Medications Medication Instructions Recorded Confirmed Last Taken Type Furosemide [Lasix TAB] 40 mg PO QDAY 06/27/16 06/27/16 Unknown History Metoprolol [Lopressor] 25 mg PO DAILY 06/27/16 06/27/16 Unknown History Potassium Citrate [Potassium 10 meq PO DAILY 06/27/16 06/27/16 Unknown History Citrate ER] Active Meds: Active Medications Acetaminophen (Tylenol) 650 mg PO Q4H PRN PRN Reason: Pain MILD(1-3)/Fever >100.5/MAO Acetaminophen/Hydrocodone Bitart ([place] 5/325) 1 each PO Q6H PRN PRN Reason: Pain, Moderate (4-6) Aspirin (Ecotrin) 325 mg PO QDAY RUTHY Last Admin: 06/28/16 10:37 Dose: 325 mg Bisacodyl (Dulcolax) 10 mg VA QDAY PRN PRN Reason: Constipation unrelieved by MOM Carvedilol (Coreg) 6.25 mg PO BID [facility] Last Admin: 06/28/16 10:37 Dose: 6.25 mg Heparin Sodium (Porcine) (Heparin) 5,000 unit SUB-Q Q8HR [facility] Last Admin: 06/28/16 13:03 Dose: Not Given Losartan Potassium (Cozaar) 25 mg PO QDAY [facility] Last Admin: 06/28/16 10:37 Dose: 25 mg Magnesium Hydroxide (Milk Of Magnesia) 30 ml PO Q4H PRN PRN Reason: Constipation Last Admin: 06/27/16 18:13 Dose: 30 ml Nitroglycerin (Nitrostat) 0.4 mg SL Q5M PRN PRN Reason: Chest Pain Nitroglycerin (Nitro-Bid 2%) 0.5 inch TP Q6H [facility] PRN Reason: Protocol Last Admin: 06/28/16 12:55 Dose: Not Given Ondansetron HCl (Zofran) 4 mg IV Q8H PRN PRN Reason: nausea or vomiting Pantoprazole Sodium (Protonix) 40 mg PO QDAY [facility] Last Admin: 06/28/16 10:37 Dose: 40 mg Sodium Chloride (Sodium Chloride Flush Syringe 10 Ml) 10 ml IV PRN PRN PRN Reason: LINE FLUSH Review of Systems - Review of Systems All systems: negative (as noted in the HPI.) Exam - Constitutional Vital Signs: Temp Pulse Resp BP Pulse Ox 97.8 F 74 18 143/72 98 06/28/16 16:50 06/28/16 16:50 06/28/16 16:50 06/28/16 16:50 06/28/16 16:50 General appearance: no acute distress - EENT Eyes: PERRL, EOM intact ENT: hearing intact - Neck Neck: supple, normal ROM - Respiratory Respiratory effort: normal Respiratory: bilateral: CTA - Cardiovascular Rhythm: regular Heart Sounds: Present: S1 & S2 Extremities: no ischemia, No edema - Gastrointestinal General gastrointestinal: Present: soft, non-tender, non-distended - Integumentary Integumentary: Present: clear, warm, dry - Neurologic Neurological: alert and oriented x3 - Labs CBC & Chem 7: 06/28/16 05:01 06/28/16 05:01 Lab Results: Laboratory Results - last 24 hr 06/28/16 06/28/16 05:01 05:01 WBC 3.1 L RBC 3.92 Hgb 12.5 Hct 38.2 MCV 98 H MCH 32 MCHC 33 RDW 13.8 Plt Count 172 Baso % (Auto) Client Support Professional Add Manual Diff Complete Total Counted 100 Seg Neutrophils % Client Support Professional Seg Neuts % (Manual) 30.0 L Band Neutrophils % 0 Lymphocytes % (Manual) 45.0 H Reactive Lymphs % (Man) 0 Monocytes % (Manual) 14.0 H Eosinophils % (Manual) 7.0 H Basophils % (Manual) 4.0 H Metamyelocytes % 0 Myelocytes % 0 Promyelocytes % 0 Blast Cells % 0 Nucleated RBC % Not Reportable Seg Neutrophils # Man 0.9 L Band Neutrophils # 0.0 Lymphocytes # (Manual) 1.4 Abs React Lymphs (Man) 0.0 Monocytes # (Manual) 0.4 Eosinophils # (Manual) 0.2 Basophils # (Manual) 0.1 Metamyelocytes # 0.0 Myelocytes # 0.0 Promyelocytes # 0.0 Blast Cells # 0.0 WBC Morphology Not Reportable Hypersegmented Neuts Not Reportable Hyposegmented Neuts Not Reportable Hypogranular Neuts Not Reportable Smudge Cells Not Reportable Toxic Granulation Not Reportable Toxic Vacuolation Not Reportable Dohle Bodies Not Reportable Pelger-Huet Anomaly Not Reportable Georgina Rods Not Reportable Platelet Estimate Consistent w auto Clumped Platelets Not Reportable Plt Clumps, EDTA Not Reportable Large Platelets Not Reportable Giant Platelets Not Reportable Platelet Satelliting Not Reportable Plt Morphology Comment Not Reportable RBC Morphology Normal Dimorphic RBCs Not Reportable Polychromasia Not Reportable Hypochromasia Not Reportable Poikilocytosis Not Reportable Anisocytosis Not Reportable Microcytosis Not Reportable Macrocytosis Not Reportable Spherocytes Not Reportable Pappenheimer Bodies Not Reportable Sickle Cells Not Reportable Target Cells Not Reportable Tear Drop Cells Not Reportable Ovalocytes Not Reportable Helmet Cells Not Reportable Youssef-[place] Bodies Not Reportable [place] Rings Not Reportable [place] Cells Not Reportable Bite Cells Not Reportable Crenated Cell Not Reportable Elliptocytes Not Reportable Acanthocytes (Spur) Not Reportable Rouleaux Not Reportable Hemoglobin C Crystals Not Reportable Schistocytes Not Reportable Malaria parasites Not Reportable Luis Bodies Not Reportable Hem Pathologist Commnt No Sodium 144 Potassium 4.2 Chloride 106.6 Carbon Dioxide 27 Anion Gap 15 BUN 16 Creatinine 0.7 Estimated GFR > 60 BUN/Creatinine Ratio 22.85 Glucose 86 Calcium 8.8 Assessment and Plan - Patient Problems (1) Atypical chest pain Current Visit: Yes Status: Acute Plan to address problem: - Given associated mild dysphagia, likely a hiatal hernia with ring +/- reflux changes. - Will continue protonix (discussed risks/benefits of PPI therapy with her). - EGD tomorrow given her smoking history. - OK to continue ASA for now. (2) Dysphagia Current Visit: Yes Status: Acute
[2016-06-28] MEDS: MILK OF MAGNESIA PO PRN (21:34)
[2016-06-28] MEDS ORDERED: BENADRYL PO PRN (21:59)
[2016-06-29] MEDS: NITRO-BID 2% TP SCH ×3 (00:26→12:05)
[2016-06-29] MEDS: HEPARIN SUB-Q SCH ×2 (06:13→13:26)
[2016-06-29] MEDS ORDERED: WATER FOR IRRIG STERILE IR ONE (07:53)
--- NOTE | 2016-06-29 07:56 | Anesthesia Consultation ---
Anesthesia Consult and Med Hx Date of service: 06/29/16 - Airway Anesthetic Teeth Evaluation: Poor (missing teeth upper and lower), Partials ROM Head & Neck: Adequate Mental/Hyoid Distance: Adequate Mallampati Class: Class II Intubation Access Assessment: Probably Good - Pulmonary Exam CTA: Yes - Cardiac Exam Cardiac Exam: RRR - Pre-Operative Health Status ASA Pre-Surgery Classification: ASA3 Proposed Anesthetic Plan: MAC - Pulmonary Hx Smoking: Yes (06/18 PPD) SOB: Yes (06/27/16 upon exertion with chest pain) - Cardiovascular System Hx Hypertension: Yes (EF 35-40%, CHF w/ chronic systolic dysfuntion) Hx Angina: Yes (06/27/16 - cardiac enzymes negative, cardiac clearance obtained) Hx Pacemaker: Yes Hx Internal Defibrillator: Yes (AICD) - Central Nervous System Hx Neuromuscular Disorder: Yes (dysphagia) - Gastrointestinal Hx Gastroesophageal Reflux Disease: No - Hematic Hx Anemia: No Hx Sickle Cell Disease: No - Other Systems Hx Alcohol Use: Yes (occassionally) Hx Substance Use: No Hx Cancer: No Hx Obesity: No
--- NOTE | 2016-06-29 07:57 | Anesthesia Day of Surgery ---
Anesthesia Day of Surgery - Day of Surgery Patient Examined: Yes Patient H&P Reviewed: Yes Patient is NPO: Yes (06/28/16 1037; will assess prior to procedure for admin)
[2016-06-29] MEDS ORDERED: NACL 0.9% 1000 ML 1,000 ML IV SCH ×2 (08:00→10:00)
[2016-06-29] MEDS ORDERED: DIPRIVAN 10 MG/ML IV ONE ×2 (08:11)
[2016-06-29] MEDS ORDERED: AMIDATE IV ONE (08:19)
[2016-06-29] MEDS ORDERED: ROBINUL ONE (08:25)
[2016-06-29] MEDS ORDERED: XYLOCAINE MPF 2% ONE (08:25)
[2016-06-29] MEDS ORDERED: NORMODYNE IV ONE (08:38)
--- NOTE | 2016-06-29 08:45 | Post Operative Note ---
Pre-op diagnosis: Atypical Chest Pain Post-op diagnosis: other (Hiatal Hernia, Esophagitis/Gastritis) Findings: 1. Normal duodenum 2. Moderate erosive gastritis, particularly in the antrum (cold bx) 3. Small hiatal hernia 4. NERD (nonerosive erythema in the distal esophagus) Procedure: EGD with cold bx Anesthesia: MAC Surgeon: HELLEN WARREN Estimated blood loss: minimal Pathology: list (1. Gastric Antrum. 2. Lower third of esophagus) Specimen disposition: to lab Condition: stable Disposition: floor (Recs: 1. F/U pathology in clinic. 2. OK to d/c home. 3. Patient should stay on protonix as an outpatient. 4. D/C tobacco. 5. Will sign off; please call with questions.)
--- NOTE | 2016-06-29 08:53 | Discharge Summary ---
Providers - Providers Date of Admission: 06/27/16 11:37 Date of discharge: 06/29/16 Attending physician: DAMIAN VERMA 06/27/16 Consult to Cardiac Rehabilitation [CONS] Routine Reason For Exam: Phase I 06/28/16 11:24 Consult to Physician [CONS] Routine Consulting Provider: HELLEN WARREN Reason For Exam: Abdominal pain Place consult to:: randall Notified:: office Phone number called:: [phone] Was contact made?: Yes If yes, spoke with:: cherise Time called:: 11:26 Primary care physician: [employer] OFFICER Hospitalization Reason for admission: atypical cp Condition: Undetermined Hospital course: The patient is a 60 yo female with non-cardiogenic chest pain (per cards eval) admitted with R/O [facility]. Patient was seen by cardiology in consultation. She does have cardiac dysfunction (see reports) but her enzymes were negative. She described substernal pain and burning, especially with swallowing food. There was mild dysphagia for meats and pills. She has never had an upper endoscopy; she has had a colonoscopy over 5 years ago. She does have a hx of breast CA (a full-body PET was negative 6 months ago), and is a current smoker. She used to take prilosec in the past, and had few symptoms; now she uses mustard extract and this works to acutely calm down the symptoms, but does not completely resolve them. She has no family hx of esophageal cancer. There has been no hematemesis, and no severe dyspepsia. She has not had any abnormal loss of weight. Patient underwent EGD with GI consultation that revealed a Normal duodenum, and moderate erosive gastritis, particularly in the antrum. Cold biopsy was performed. Patient also had small hiatal hernia and nonerosive erythema in the distal esophagus. GI recommended follow-up in the clinic of the pathology and continue Protonix at the outpatient. Patient was also counseled on discontinuation of tobacco. Dedicated discharge time 35 minutes. Disposition: DISCHARGED TO HOME OR SELFCARE - Discharge Diagnoses (1) Acute chest pain Status: Acute (2) Dysphagia Status: Acute (3) Erosive esophagitis Status: Acute Core Measure Documentation - Palliative Care Palliative Care/ Comfort Measures: Not Applicable - Core Measures Any of the following diagnoses?: none Exam - Constitutional Vitals: Temp Pulse Resp BP Pulse Ox 98.4 F 79 15 173/95 98 06/29/16 08:08 06/29/16 08:08 06/29/16 08:08 06/29/16 08:08 06/29/16 08:08 General appearance: Present: no acute distress, well-nourished - EENT Eyes: Present: PERRL ENT: hearing intact, clear oral mucosa - Neck Neck: Present: supple, normal ROM - Respiratory Respiratory effort: normal Respiratory: bilateral: CTA - Cardiovascular Heart Sounds: Present: S1 & S2. Absent: rub, click - Extremities Extremities: pulses symmetrical, No edema Peripheral Pulses: within normal limits - Abdominal General gastrointestinal: Present: soft, non-tender, non-distended, normal bowel sounds Female genitourinary: Present: normal - Integumentary Integumentary: Present: clear, warm, dry - Musculoskeletal Musculoskeletal: gait normal, strength equal bilaterally - Psychiatric Psychiatric: appropriate mood/affect, intact judgment & insight - Neurologic Neurologic: CNII-XII intact, moves all extremities Plan Activity: no restrictions Weight Bearing Status: Full Weight Bearing Diet: regular Special Instructions: smoking cessation Follow up with: PRIMARY CAREMD [Primary Care Provider] - 3-5 Days HELLEN WARREN MD [Staff Physician] - 7 Days Prescriptions: Carvedilol [Coreg] 6.25 mg PO BID #60 tablet HYDROcodone/APAP 5-325 [[place] 5-325 mg TAB] 1 each PO Q6H PRN #20 tablet PRN Reason: Pain, Moderate (4-6) Losartan [Cozaar] 25 mg PO QDAY #30 tablet Pantoprazole [Protonix TAB] 40 mg PO QDAY #30 tablet
[2016-06-29 09:23] VITALS: BP 152/90
[2016-06-29] MEDS: COREG PO SCH (10:27)
[2016-06-29] MEDS: ECOTRIN PO SCH (10:28)
[2016-06-29] MEDS: PROTONIX PO SCH (10:28)
[2016-06-29] MEDS: COZAAR PO SCH (10:28)
--- NOTE | 2016-06-29 10:34 | Operative Report ---
PROCEDURE PERFORMED: Esophagogastroduodenoscopy with cold biopsy. PREOPERATIVE DIAGNOSIS: Atypical chest pain. POSTOPERATIVE DIAGNOSES: Hiatal hernia as well as gastritis/esophagitis. ENDOSCOPIST: Angel Luis Judd MD INSTRUMENT: Wayin video endoscope. MEDICATIONS: MAC anesthesia by [facility]. COMPLICATIONS: No apparent complications. ESTIMATED BLOOD LOSS: Minimal. SPECIMENS: 1. Gastric antrum. 2. Lower third of the esophagus. IMPLANTS: None. ASSISTANTS: None. CONDITION AT COMPLETION: Stable. TECHNIQUE: The patient was informed of the risks and benefits of the procedure. She signed the informed consent to proceed. She was placed in the left lateral decubitus position. The above sedative medications were given. Her vital signs were stable throughout the procedure. The instrument was advanced from the mouth to the second portion of the duodenum under direct visualization. At that point, the bowel was insufflated and the endoscope was slowly withdrawn. FINDINGS: 1. Normal duodenum. 2. Moderate erosive gastritis, particularly in the antrum; cold biopsies were taken. 3. Small hiatal hernia. 4. Nonerosive esophageal reflux disease characterized by erythema in the lower third; cold biopsies were taken. RECOMMENDATIONS: 1. Follow up pathology in the clinic. 2. Okay to discharge the patient home. 3. Regular diet. 4. The patient should stay on Protonix as an outpatient. 5. The patient should discontinue tobacco. 6. We will sign off. Please call with questions. JOB# [id number] [place]/LUCIAN
--- NOTE | 2016-06-29 10:52 | Post Anesthesia Evaluation ---
- Post Anesthesia Evaluation Patient Participated: Yes Airway Patent: Yes Stable Respiratory Function: Yes Nausea/Vomiting: No Temp > 96.8F: Yes Pain Manageable: Yes Adequeate Hydration: Yes Anesthesia Complications: No
--- NOTE | 2016-06-29 13:56 | Progress Note ---
Assessment and Plan Atypical chest pain troponin negative x 3 no acute EKG changes Echo 06/2016: EF 35-40%, impaired relaxation, RVSP 55mmHg, moderate TR stress MPI 06/2013: no ischemia [facility] 2007: normal coronaries Chronic systolic heart failure EF 35-40% currently euvolemic continue coreg, losartan Non-ischemic cardiomyopathy [facility] 2007: normal coronaries Hypertension stable continue coreg, losartan Tobacco use counselled on cessation Stable cardiac status. Okay to d/c home from a cardiac standpoint. Follow up appointment with Dr. Blair in the [place] office on 07/19/16 at 11: 15 am. The patient has been seen in conjunction with Dr. Adams who agrees with the assessment and plan of care. Subjective Date of service: 06/29/16 Principal diagnosis: atypical chest pain Interval history: The patient is resting in bed. S/p EGD this am. No new complaints. Sinus rhythm on the monitor. Objective Last Vital Signs Temp 97.9 F 06/29/16 08:56 Pulse 68 06/29/16 09:54 Resp 10 L 06/29/16 09:22 BP 152/90 06/29/16 09:22 Pulse Ox 100 06/29/16 09:22 - Physical Examination General: No Apparent Distress HEENT: Positive: PERRL, Normocephaly, Mucus Membranes Moist Neck: Positive: neck supple, trachea midline Cardiac: Positive: Reg Rate and Rhythm, S1/S2 Lungs: Positive: clear to auscultation Neuro: Positive: Grossly Intact Abdomen: Positive: Soft, Active Bowel Sounds. Negative: Tender Skin: Positive: Clear. Negative: Rash Extremities: Present: normal. Absent: edema - Imaging and Cardiology EKG: image reviewed Echo: report reviewed (06/2016: EF 35-40%, impaired relaxation, RVSP 55mmHg, moderate TR) - Telemetry EKG Rhythm: Sinus Rhythm - EKG Sinus rhythms and dysrhythmias: sinus rhythm Chamber hypertrophy or enlargement: left ventricular hypertro Repolarization changes or abnormalities: repolarization abn secondary to ventricular hypertrophy
[2016-06-30] MEDS ORDERED: NACL 0.9% 1000 ML 1,000 ML IV SCH (08:00)
--- NOTE | 2016-07-05 10:29 | Query- General ---
Dear Date:07/05/16 Apartment Groundskeeper/CDS:Jeremy Hayward Phone#: Exercise your independent professional judgment when responding to this query. Questions asked do not imply a particular answer is desired or expected. We greatly appreciate your clarification on this issue. Clinical Documentation States: 60 y/o f admitted 06/27/16 with epigastric chest pain. Later diagnosed by Dr. Judd OP note, 06/29/16,"Non-erosive esophageal reflux disease". In Dr. Solano's discharge summary,"Erosive gastritis". Given the above clinical scenario can you please provide an appropriate diagnosis based on your knowledge of the patient: Please clarify the appropriate diagnosis ; PHYSICIAN RESPONSE: [ ] Erosive gastritis [ x ] Non-erosive gastritis [ ] Other (please specify) [ ] Not applicable Present on Admission: [ x] Yes (Y) [ ] Clinically undeterminable (W) [ ]No(N) Please also document response in your Progress Notes and/or Discharge Summary and indicate if the condition was present on admission. ROSALIED
== END 2016-06-29 14:32 | disposition home or self-care (01) | DRG 392 ==
LOC: ED 23:47 → 4A 06-27 11:37
PROVIDERS: ADMIT Internal Medicine; ATTEND Hospitalist
PROC: 0DB68ZX Excision of Stomach, Via Natural or Artificial Opening Endoscopic, Diagnostic (ICD-10-PCS; principal; 2016-06-29)
PROC: 0DB38ZX Excision of Lower Esophagus, Via Natural or Artificial Opening Endoscopic, Diagnostic (ICD-10-PCS; principal; 2016-06-29)
DX: K21.0 Gastro-esophageal reflux disease with esophagitis (principal); I42.9 Cardiomyopathy, unspecified; I50.22 Chronic systolic (congestive) heart failure; I11.0 Hypertensive heart disease with heart failure; F17.210 Nicotine dependence, cigarettes, uncomplicated; K44.9 Diaphragmatic hernia without obstruction or gangrene; Z85.3 Personal history of malignant neoplasm of breast; Z90.12 Acquired absence of left breast and nipple; Z98.890 Other specified postprocedural states; Z95.810 Presence of automatic (implantable) cardiac defibrillator; Z82.49 Family history of ischemic heart disease and other diseases of the circulatory system; Z83.3 Family history of diabetes mellitus; Z71.6 Tobacco abuse counseling; K29.60 Other gastritis without bleeding
CPT/HCPCS: 36415; 71275; 80048; 82550; 82553; 84484; 85007; 85025; 88305; 88312; 88342; 93005; 93010; 93306; 96374; 99406; J1644; J2270; J2405; J2704; J7030; Q9967

== ENCOUNTER 2017-04-01 10:41 | Outpatient (CLI) | payer MEDICARE ==
[2017-04-01 12:01] LABS: Blood Urea Nitrogen 14 mg/dL (7-17)
--- NOTE | 2017-04-01 13:10 | Mammography Report ---
RIGHT DIGITAL SCREENING MAMMOGRAM : 04/01/17 10:41:00 CLINICAL: Routine screening. Breast cancer survivor status post left mastectomy. COMPARISON:02/02/16 FINDINGS: The breast is heterogeneously dense, which may obscure small masses. A pacer obscures a portion of the upper breast.No mass, architectural distortion or suspicious calcifications. IMPRESSION: No mammographic evidence of malignancy. BI-RADS CATEGORY: 1 - - Negative RECOMMENDATION: Routine screening in one year. ACR BI-RADS MAMMOGRAPHIC CODES: 0 = Needs additional imaging evaluation; 1 = Negative; 2 = Benign; 3 = Probably benign; 4 = Suspicious; 5 = Malignant; 6 = Known biopsy-proven malignancy COMMENT: 1. Dense breast tissue, i.e., adenosis, fibrocystic changes, etc., may obscure an underlying neoplasm. 2. Approximately 10% of cancers are not detected with mammography. 3. A negative mammography report should not delay biopsy if a clinically suspicious mass is present. COMMENT: Patient follow-up letters are generated via our [employer] application.
--- NOTE | 2017-04-01 14:53 | Cat Scan Report ---
CT CHEST WITH CONTRAST: HISTORY: Shortness of breath. TECHNIQUE: Helical CT following IV contrast. Sagittal and coronal reformatted images. FINDINGS: There is mild cardiomegaly. No pericardial effusion. A pacemaker device is in position.. There is no evidence of adenopathy within the mediastinum. Pulmonary noel are free of any mass and the lungs are clear of infiltrates. Mild pulmonary venous congestion is suspected. No infiltrate, pleural effusion or pneumothorax The pleura is unremarkable. No masses involve the chest wall. Left mastectomy changes are noted. No suspicious bony lesion or fracture is detected. IMPRESSION: Mild cardiomegaly and pulmonary venous congestion. No CHF.
--- NOTE | 2017-04-01 15:10 | Cat Scan Report ---
CT ABDOMEN AND PELVIS WITH CONTRAST INDICATION: Abdominal bloating. COMPARISON: 02/02/2016 PET/CT images. FINDINGS: Abdomen and pelvis CT performed following oral contrast and intravenous administration of 100 cc of Omnipaque 300. LUNG BASES: Mild cardiomegaly. Ventricular pacemaker lead creates streak artifact. Mild right middle lobe and lingular scarring. Slight nonspecific distal esophageal prominence/thickening. ABDOMEN: Liver, spleen, gallbladder, pancreas, adrenals, nonaneurysmal abdominal aorta with few atherosclerotic calcifications, IVC, kidneys and opacified small bowel within normal limits. Normal appendix. Few descending colon diverticuli. No ascites or size significant adenopathy. PELVIS: Proximal sigmoid diverticulosis without acute complication. 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 Grossly unremarkable urinary bladder. No free fluid or significant adenopathy. L5-S1 disc narrowing with vacuum phenomenon noted. Posterior decompression at this level as well. Mid to lower lumbar facet arthropathy also seen. Lower thoracic spine degenerative changes also identified. CONCLUSION: No acute CT abnormality or significant interval change with various incidental findings, including cardiomegaly, diverticulosis and fibroid uterus again noted, amongst others, as detailed above. Thank you for the opportunity to participate in this patient's care.
== END 2017-04-01 10:42 | disposition home or self-care (01) ==
LOC: MAMMO 10:41
PROVIDERS: ATTEND Internal Medicine Hematology & Oncology
DX: Z12.31 Encounter for screening mammogram for malignant neoplasm of breast (principal); K57.30 Diverticulosis of large intestine without perforation or abscess without bleeding; J98.4 Other disorders of lung; R14.0 Abdominal distension (gaseous); I51.7 Cardiomegaly; I70.0 Atherosclerosis of aorta; I87.8 Other specified disorders of veins; M12.88 Other specific arthropathies, not elsewhere classified, other specified site; M47.894 Other spondylosis, thoracic region; D25.9 Leiomyoma of uterus, unspecified; Z90.12 Acquired absence of left breast and nipple
CPT/HCPCS: 36415; 71260; 74177; 82565; 84520; G0202; Q9967

== ENCOUNTER 2018-11-04 10:23 | Inpatient (IN) | payer MEDICARE ==
--- NOTE | 2018-11-04 12:09 | XRay Report ---
AP CHEST: HISTORY: Shortness of breath Moderate to severe cardiomegaly appears slightly increased since 04/13/18. This may represent a pericardial effusion. Mild central pulmonary venous congestion is identified. The lungs are generally clear. Single-lead pacemaker device terminates in the right ventricle. IMPRESSION: Cardiomegaly.
--- NOTE | 2018-11-04 12:59 | Emergency Department Report ---
ED General Adult HPI - General Chief complaint: Dyspnea/Respdistress Stated complaint: SOB/CONGESTIVE HEART FAILURE Time Seen by Provider: 11/04/18 11:07 Source: patient Mode of arrival: Ambulatory Limitations: No Limitations - History of Present Illness Initial comments: Patient presents to the emergency department with a chief complaint of shortness of breath and difficulty of breathing when laying flat. Patient states she has a history of congestive heart failure and has taken 120 mg Lasix in the last 8 hours with no relief. She denies neris chest pain or headache. -: Gradual Severity scale (0 -10): 0 Consistency: constant Improves with: none Worsens with: none Associated Symptoms: denies other symptoms Treatments Prior to Arrival: none - Related Data Home Medications Medication Instructions Recorded Confirmed Last Taken Furosemide [Lasix TAB] 40 mg PO QDAY 06/27/16 04/13/18 Unknown Potassium Citrate [Potassium 10 meq PO DAILY 06/27/16 04/13/18 Unknown Citrate ER] Previous Rx's Medication Instructions Recorded Last Taken Type Carvedilol [Coreg] 6.25 mg PO BID #60 tablet 06/29/16 Unknown Rx HYDROcodone/APAP 5-325 [[place] 1 each PO Q6H PRN #20 tablet 06/29/16 Unknown Rx 5-325 mg TAB] ALBUTEROL Inhaler(NF) [VENTOLIN 1 puff IH QIDRT #1 inha 04/15/18 Unknown Rx Inhaler(NF)] Losartan [Cozaar] 50 mg PO QDAY #30 tablet 04/15/18 Unknown Rx Prednisone [predniSONE 5 mg (6-Day 5 mg PO .TAPER #1 tab.ds.pk 04/15/18 Unknown Rx Pack, 21 Tabs)] Allergies Allergy/AdvReac Type Severity Reaction Status Date / Time No Known Allergies Allergy Verified 11/04/18 10:24 ED Review of Systems ROS: Stated complaint: SOB/CONGESTIVE HEART FAILURE Other details as noted in HPI Constitutional: denies: chills, fever Eyes: denies: eye pain, eye discharge, vision change ENT: denies: ear pain, throat pain Respiratory: other (congestion). denies: cough, shortness of breath, wheezing Cardiovascular: denies: chest pain, palpitations Endocrine: no symptoms reported Gastrointestinal: denies: abdominal pain, nausea, diarrhea Genitourinary: denies: urgency, dysuria, discharge Musculoskeletal: denies: back pain, joint swelling, arthralgia Skin: denies: rash, lesions Neurological: denies: headache, weakness, paresthesias Psychiatric: denies: anxiety, depression Hematological/Lymphatic: denies: easy bleeding, easy bruising ED Past Medical Hx - Past Medical History Hx Hypertension: Yes (EF 35-40%, CHF w/ chronic systolic dysfuntion) Hx Congestive Heart Failure: Yes Hx Sickle Cell Disease: No Additional medical history: defibrillator since , has never fired - Surgical History Hx Pacemaker: Yes Hx Internal Defibrillator: Yes (AICD) Hx Breast Surgery: Yes (L radical mastectomy) - Social History Smoking Status: Current Every Day Smoker Substance Use Type: Alcohol - Medications Home Medications: Home Medications Medication Instructions Recorded Confirmed Last Taken Type Furosemide [Lasix TAB] 40 mg PO QDAY 06/27/16 04/13/18 Unknown History Potassium Citrate [Potassium 10 meq PO DAILY 06/27/16 04/13/18 Unknown History Citrate ER] Carvedilol [Coreg] 6.25 mg PO BID #60 tablet 06/29/16 04/13/18 Unknown Rx HYDROcodone/APAP 5-325 [[place] 1 each PO Q6H PRN #20 tablet 06/29/16 04/13/18 Unknown Rx 5-325 mg TAB] ALBUTEROL Inhaler(NF) [VENTOLIN 1 puff IH QIDRT #1 inha 04/15/18 Unknown Rx Inhaler(NF)] Losartan [Cozaar] 50 mg PO QDAY #30 tablet 04/15/18 Unknown Rx Prednisone [predniSONE 5 mg (6-Day 5 mg PO .TAPER #1 tab.ds.pk 04/15/18 Unknown Rx Pack, 21 Tabs)] ED Physical Exam - General Limitations: No Limitations General appearance: alert, in no apparent distress - Head Head exam: Present: atraumatic, normocephalic - Eye Eye exam: Present: normal appearance, PERRL, EOMI - ENT ENT exam: Present: mucous membranes moist - Neck Neck exam: Present: normal inspection - Respiratory Respiratory exam: Present: normal lung sounds bilaterally, rales. Absent: respiratory distress, wheezes - Cardiovascular Cardiovascular Exam: Present: regular rate, normal rhythm. Absent: systolic murmur, diastolic murmur, rubs, gallop - GI/Abdominal GI/Abdominal exam: Present: soft, normal bowel sounds. Absent: distended, ten derness - Extremities Exam Extremities exam: Present: normal inspection - Back Exam Back exam: Present: normal inspection - Neurological Exam Neurological exam: Present: alert, oriented X3, CN II-XII intact. Absent: motor sensory deficit - Psychiatric Psychiatric exam: Present: normal affect, normal mood - Skin Skin exam: Present: warm, dry, intact, normal color. Absent: rash ED Course Vital Signs 11/04/18 10:29 Temperature 98.5 F Pulse Rate 84 Respiratory 18 Rate Blood Pressure 130/84 [Right] O2 Sat by Pulse 98 Oximetry ED Medical Decision Making - Lab Data Result diagrams: 11/04/18 12:22 11/04/18 12:22 Lab Results 11/04/18 11/04/18 Range/Units 12:22 12:22 WBC 2.8 L (4.5-11.0) K/mm3 RBC 4.07 (3.65-5.03) M/mm3 Hgb 13.9 (10.1-14.3) gm/dl Hct 41.7 (30.3-42.9) % MCV 102 H (79-97) fl MCH 34 H (28-32) pg MCHC 33 (30-34) % RDW 15.1 (13.2-15.2) % Plt Count 141 (140-440) K/mm3 Lymph % (Auto) 35.1 H (13.4-35.0) % [place] % (Auto) 11.1 H (0.0-7.3) % Eos % (Auto) 6.0 H (0.0-4.3) % Baso % (Auto) 1.2 (0.0-1.8) % Lymph # 1.0 L (1.2-5.4) K/mm3 [place] # 0.3 (0.0-0.8) K/mm3 Eos # 0.2 (0.0-0.4) K/mm3 Baso # 0.0 (0.0-0.1) K/mm3 Seg Neutrophils % 46.6 (40.0-70.0) % Seg Neutrophils # 1.3 L (1.8-7.7) K/mm3 Sodium 142 (137-145) mmol/L Potassium 3.3 L (3.6-5.0) mmol/L Chloride 99.4 (98-107) mmol/L Carbon Dioxide 29 (22-30) mmol/L Anion Gap 17 mmol/L BUN 16 (7-17) mg/dL Creatinine 0.9 (0.7-1.2) mg/dL Estimated GFR > 60 ml/min BUN/Creatinine Ratio 18 % Glucose 89 (65-100) mg/dL Calcium 8.9 (8.4-10.2) mg/dL Magnesium 1.90 (1.7-2.3) mg/dL Total Bilirubin 0.80 (0.1-1.2) mg/dL AST 38 (5-40) units/L ALT 21 (7-56) units/L Alkaline Phosphatase 125 (35-129) units/L NT-Pro-B Natriuret Pep 4620 H (0-900) pg/mL Total Protein 6.3 (6.3-8.2) g/dL Albumin 3.5 L (3.9-5) g/dL Albumin/Globulin Ratio 1.3 % - EKG Data -: EKG Interpreted by Me EKG shows normal: sinus rhythm (paced, inverted t wave lateral lead v6) Rate: normal - Radiology Data Radiology results: report reviewed - Medical Decision Making Patient given IV Lasix Results discussed with patient Critical Care Time: Yes Critical care time in (mins) excluding proc time.: 35 Critical care attestation.: If time is entered above; I have spent that time in minutes in the direct care of this critically ill patient, excluding procedure time. ED Disposition Clinical Impression: CHF (congestive heart failure) Disposition: OP ADMIT IP TO THIS HOSP Is pt being admited?: Yes Does the pt Need Aspirin: Yes Condition: Fair Referrals: JONATHAN ELIZONDO JR, MD [Primary Care Provider] - 3-5 Days
[2018-11-04 13:13] LABS: Basophils % (Auto) 1.2 % (0.0-1.8); Eosinophils # (Auto) 0.2 K/mm3 (0.0-0.4); Hematocrit 41.7 % (30.3-42.9); Hemoglobin 13.9 gm/dl (10.1-14.3); Lymphocytes % (Auto) 35.1 % (13.4-35.0); Mean Corpuscular HGB Conc 33 % (30-34); Mean Corpuscular Volume 102 fl (79-97); Monocytes # (Auto) 0.3 K/mm3 (0.0-0.8); Monocytes % (Auto) 11.1 % (0.0-7.3); Platelet Count 141 K/mm3 (140-440); Red Blood Count 4.07 M/mm3 (3.65-5.03); Red Cell Distribution Width 15.1 % (13.2-15.2)
[2018-11-04 13:40] LABS: Alanine Aminotransferase 21 units/L (7-56); Albumin 3.5 g/dL (3.9-5); BUN/Creatinine Ratio 18; Blood Urea Nitrogen 16 mg/dL (7-17); Calcium 8.9 mg/dL (8.4-10.2); Hemolysis Index 78
[2018-11-04] MEDS ORDERED: LASIX IV ONE ×2 (13:43→23:00)
[2018-11-04] MEDS ORDERED: BABY ASPIRIN PO ONE (15:38)
[2018-11-04] MEDS ORDERED: TYLENOL PO PRN (21:27)
[2018-11-04] MEDS ORDERED: ZOFRAN IV PRN (21:27)
[2018-11-04] MEDS ORDERED: DILAUDID IV PRN (21:27)
[2018-11-04] MEDS ORDERED: PERCOCET 5/325 PO PRN (21:27)
[2018-11-04] MEDS: COZAAR PO SCH (22:24)
[2018-11-04] MEDS: COREG PO SCH (22:25)
[2018-11-04] MEDS: PEPCID PO SCH (22:25)
[2018-11-04] MEDS: SODIUM CHLORIDE FLUSH SYRINGE 10 ML IV SCH (22:26)
[2018-11-04] MEDS: ZAROXOLYN PO SCH (22:29)
[2018-11-05] MEDS ORDERED: PROVENTIL IH PRN (00:15)
[2018-11-05] MEDS: LASIX IV SCH ×2 (06:26→18:03)
[2018-11-05] MEDS: SODIUM CHLORIDE FLUSH SYRINGE 10 ML IV PRN (06:27)
--- NOTE | 2018-11-05 07:02 | Event Note ---
Date: 11/04/18 See H/p in reports CHF exacerbation
[2018-11-05] MEDS ORDERED: PROAIR IH SCH (08:00)
[2018-11-05] MEDS ORDERED: K-DUR PO ONE ×3 (08:00→14:00)
--- NOTE | 2018-11-05 08:08 | History and Physical Report ---
CHIEF COMPLAINT: Increasing shortness of breath for the last 4 weeks, more so for the last one day. HISTORY OF PRESENT ILLNESS: A 63-year-old female with known history of CHF has been having difficulty breathing for the last 3-4 weeks. Even on small distances, the patient has been getting short of breath. Since yesterday, the patient has been getting more short of breath and on lying down, unable to lie flat. No paroxysmal nocturnal dyspnea. No diaphoresis. No chest pain. The patient has been taking Lasix with no relief. The patient took 120 mg of Lasix over the last 24 hours. The patient is complaining that she is not passing enough urine. PAST MEDICAL HISTORY: Significant for CHF, hypertension and asthma/COPD. CURRENT MEDICATIONS: Losartan, carvedilol, and albuterol. PAST SURGICAL HISTORY: AICD. Left radical mastectomy. SOCIAL HISTORY: Smokes half a pack a day. FAMILY HISTORY: Hypertension. REVIEW OF SYSTEMS: Significant for shortness of breath on minimal exertion, also shortness of breath on lying flat. PHYSICAL EXAMINATION: GENERAL: An elderly female, cooperative during examination. VITAL SIGNS: Blood pressure 133/93, temperature 97.4, pulse is 101, respirations 18. HEENT: Unremarkable. Pupils equal and reactive. NECK: Supple, no lymphadenopathy, no thyromegaly. LUNGS: Clear to auscultation and percussion. Good air entry. CARDIOVASCULAR: S1, S2 heard. No gallop, no murmur, no rub. Apical impulse in left fifth intercostal space and midclavicular line. ABDOMEN: Soft and benign. No hepatosplenomegaly. No guarding, no rigidity. Hernial orifices are normal. EXTREMITIES: 2+ pedal edema present. CENTRAL NERVOUS SYSTEM: Normal. LABORATORY DATA: Significant for hemoglobin of 13.9 and hematocrit of 40.7, white blood cells 2.8. Platelet count is 141,000. Potassium is 3.3. BUN and creatinine is 16 and 0.9. BNP is 4620. EKG shows heart rate of 86 per minute. Severe LVH criteria present. Left atrial enlargement present. Nonspecific ST-T wave changes. There may be an AV conduction block. Chest x-ray shows CHF and cardiomegaly. ASSESSMENT AND PLAN: 1. Congestive heart failure exacerbation. The patient initiated on IV Lasix 40 q.12 along with Zaroxolyn. Echocardiogram ordered. 2. Hypertension. Continue carvedilol and losartan. 3. Chronic obstructive pulmonary disease. Continue DuoNeb and albuterol. 4. Deep venous thrombosis prophylaxis, Lovenox 40 mg subcutaneously daily. JOB# [id number] MUKUNDM/LUCIAN MTDD
[2018-11-05 08:56] LABS: Hematocrit 42.1 % (30.3-42.9); Hemoglobin 13.9 gm/dl (10.1-14.3); Mean Corpuscular HGB Conc 33 % (30-34); Mean Corpuscular Volume 102 fl (79-97); Platelet Count 134 K/mm3 (140-440); Red Blood Count 4.13 M/mm3 (3.65-5.03); Red Cell Distribution Width 15.3 % (13.2-15.2)
[2018-11-05 09:22] LABS: Alanine Aminotransferase 20 units/L (7-56); Albumin 3.6 g/dL (3.9-5); BUN/Creatinine Ratio 15; Blood Urea Nitrogen 16 mg/dL (7-17); Calcium 8.9 mg/dL (8.4-10.2); Hemolysis Index 11
[2018-11-05] MEDS ORDERED: FISH OIL PO SCH (10:00)
[2018-11-05] MEDS: PROVENTIL IH SCH ×5 (10:07→20:02)
[2018-11-05 10:55] LABS: Anisocytosis 1+; Large Platelets Few; Platelet Estimate Consistent w Auto; Total Cells Counted 100
--- NOTE | 2018-11-05 11:30 | Consultation ---
History of Present Illness Consult date: 11/05/18 Requesting physician: JER CARO Consult reason: congestive heart failure History of present illness: The pt is a 63 YO female with a past medical history significant for NICMP, chronic systolic HF, AICD in situ, s/p AICD gen change 03/2018, [facility] in 2007 with normal coronaries, severe TR, pulm HTN, HTN, tobacco use, emphysema, breast CA s/p left mastectomy in 2001. She is followed in our office by Dr. Blair. She presented with complaints of progressively worsening SOB, DUPREE, orthopnea and abdominal swelling for several days prior to arrival. She states that at the onset of her symptoms, she doubled her home dosage of lasix every other day but her symptoms continued to worsen. She denies any chest pain, palpitations, n/v, diaphoresis, dizziness or syncope. Echo done 01/2018 showed EF 20-25%, LV mildly dilated, grade 3 diastolic dysfunction, RV mildly dilated, LA severely enlarged, RA mod enlarged, severe TR , mod pulm HTN with RVSP 59mmHg LHC done 05/2008 showed normal coronaries, EF 35%. Stress thallium test done 03/2018 was negative for any significant ischemia or infarction, EF 15%. Past History Past Medical History: other (as per HPI) Medications and Allergies Allergies Allergy/AdvReac Type Severity Reaction Status Date / Time No Known Allergies Allergy Verified 11/04/18 10:24 Home Medications Medication Instructions Recorded Confirmed Last Taken Type Furosemide [Lasix TAB] 40 mg PO QDAY 06/27/16 11/04/18 11/04/18 History Potassium Citrate [Potassium 10 meq PO DAILY 06/27/16 11/04/18 11/03/18 History Citrate ER] Carvedilol [Coreg] 6.25 mg PO BID #60 tablet 06/29/16 11/04/18 11/03/18 Rx ALBUTEROL Inhaler(NF) [VENTOLIN 1 puff IH QIDRT #1 inha 04/15/18 11/04/18 11/03/18 Rx Inhaler(NF)] Losartan [Cozaar] 50 mg PO QDAY #30 tablet 04/15/18 11/04/18 11/03/18 Rx [place]-3 Fatty Acids/Fish Oil [Fish 1 each PO DAILY 11/04/18 11/04/18 11/03/18 History Oil] Active Meds: Active Medications Acetaminophen (Tylenol) 650 mg PO Q4H PRN PRN Reason: Pain MILD(1-3)/Fever >100.5/MAO Albuterol (Proventil) 2.5 mg IH QIDRT [facility] Last Admin: 11/05/18 10:07 Dose: Not Given Documented by: Albuterol (Proventil) 2.5 mg IH Q4HRT PRN PRN Reason: Shortness Of Breath Last Admin: 11/05/18 00:38 Dose: 2.5 mg Documented by: Carvedilol (Coreg) 6.25 mg PO BID [facility] Last Admin: 11/04/18 22:25 Dose: 6.25 mg Documented by: Enoxaparin Sodium (Lovenox) 40 mg SUB-Q QDAY@2200 [facility] Famotidine (Pepcid) 20 mg PO BID [facility] Last Admin: 11/04/18 22:25 Dose: 20 mg Documented by: Fish Oil (Fish Oil) 1,000 mg PO DAILY [facility] Furosemide (Lasix) 40 mg IV 0600,1800 [facility] Last Admin: 11/05/18 06:26 Dose: 40 mg Documented by: Hydromorphone HCl (Dilaudid) 0.5 mg IV Q3H PRN PRN Reason: Pain , Severe (7-10) Losartan Potassium (Cozaar) 50 mg PO QDAY [facility] Last Admin: 11/04/18 22:24 Dose: 50 mg Documented by: Metolazone (Zaroxolyn) 5 mg PO Q12H [facility] Last Admin: 11/04/18 22:29 Dose: 5 mg Documented by: Ondansetron HCl (Zofran) 4 mg IV Q8H PRN PRN Reason: Nausea And Vomiting Oxycodone/Acetaminophen (Percocet 5/325) 1 tab PO Q6H PRN PRN Reason: Pain, Moderate (4-6) Sodium Chloride (Sodium Chloride Flush Syringe 10 Ml) 10 ml IV BID [facility] Last Admin: 11/04/18 22:26 Dose: 10 ml Documented by: Sodium Chloride (Sodium Chloride Flush Syringe 10 Ml) 10 ml IV PRN PRN PRN Reason: LINE FLUSH Last Admin: 11/05/18 06:27 Dose: 10 ml Documented by: Review of Systems Constitutional: no fever, no chills, no sweats Ears, nose, mouth and throat: no ear pain, no nose pain, no sinus pressure, no sinus pain Cardiovascular: orthopnea, edema, shortness of breath, dyspnea on exertion, paroxysmal nocturnal dyspnea, leg edema, decreased exercise tolerance, no chest pain, no palpitations, no rapid/irregular heart beat, no syncope, no lightheadedness, no high blood pressure Respiratory: shortness of breath, dyspnea on exertion, no cough, no congestion, no wheezing, no pain on inspiration Gastrointestinal: no abdominal pain, no nausea, no vomiting, no diarrhea, no constipation, no change in bowel habits Genitourinary Female: no pelvic pain, no flank pain, no dysuria, no urinary frequency, no urgency Musculoskeletal: no neck stiffness, no neck pain, no shooting arm pain, no arm numbness/tingling, no low back pain, no shooting leg pain Integumentary: no rash, no pruritis, no redness, no sores, no wounds Neurological: no head injury, no paralysis, no weakness, no parathesias, no numbness, no tingling, no seizures, no syncope Psychiatric: no anxiety Endocrine: no cold intolerance, no heat intolerance Hematologic/Lymphatic: no easy bruising, no easy bleeding Allergic/Immunologic: no urticaria, no wheezing Physical Examination Vital Signs Temp Pulse Resp BP Pulse Ox 98.5 F 84 18 130/84 98 11/04/18 10:29 11/04/18 10:29 11/04/18 10:29 11/04/18 10:29 11/04/18 10:29 General appearance: no acute distress HEENT: Positive: PERRL, Normocephaly, Mucus Membranes Moist Neck: Positive: neck supple, trachea midline Cardiac: Positive: Reg Rate and Rhythm, S1/S2, Systolic Murmur Lungs: Positive: Decreased Breath Sounds Neuro: Positive: Grossly Intact Abdomen: Negative: Tender Skin: Negative: Rash Musculoskeletal: No Pain Extremities: Absent: edema Results 11/05/18 08:21 11/05/18 08:21 Cardiac Enzymes 11/04/18 11/05/18 Range/Units 12:22 08:21 AST 38 33 (5-40) units/L CBC 11/04/18 11/05/18 Range/Units 12:22 08:21 WBC 2.8 L 2.8 L (4.5-11.0) K/mm3 RBC 4.07 4.13 (3.65-5.03) M/mm3 Hgb 13.9 13.9 (10.1-14.3) gm/dl Hct 41.7 42.1 (30.3-42.9) % Plt Count 141 134 L (140-440) K/mm3 Lymph # 1.0 L (1.2-5.4) K/mm3 [place] # 0.3 (0.0-0.8) K/mm3 Eos # 0.2 (0.0-0.4) K/mm3 Baso # 0.0 (0.0-0.1) K/mm3 Comprehensive Metabolic Panel 11/04/18 11/05/18 Range/Units 12:22 08:21 Sodium 142 146 H (137-145) mmol/L Potassium 3.3 L 3.0 L (3.6-5.0) mmol/L Chloride 99.4 100.9 (98-107) mmol/L Carbon Dioxide 29 32 H (22-30) mmol/L BUN 16 16 (7-17) mg/dL Creatinine 0.9 1.1 (0.7-1.2) mg/dL Glucose 89 108 H (65-100) mg/dL Calcium 8.9 8.9 (8.4-10.2) mg/dL AST 38 33 (5-40) units/L ALT 21 20 (7-56) units/L Alkaline Phosphatase 125 124 (35-129) units/L Total Protein 6.3 6.3 (6.3-8.2) g/dL Albumin 3.5 L 3.6 L (3.9-5) g/dL - Imaging and Cardiology Echo: report reviewed (01/2018 showed EF 20-25%, LV mildly dilated, grade 3 diastolic dysfunction, RV mildly dilated, LA severely enlarged, RA mod enlarged, severe TR, mod pulm HTN with RVSP 59mmHg ) Cardiac cath: report reviewed (C done 05/2008 showed normal coronaries, EF 35%. ) EKG: report reviewed, image reviewed EKG interpretations - Telemetry EKG Rhythm: Sinus Rhythm - EKG Sinus rhythms and dysrhythmias: sinus rhythm Chamber hypertrophy or enlargement: left ventricular hypertro Assessment and Plan Assessment: Acute on chronic HF with reduced ejection fraction NICMP - EF 20-25%; [facility] in 2007 with normal coronaries; Stress thallium test done 03/2018 was negative for any significant ischemia or infarction, EF 15%. AICD in situ, s/p AICD gen change 03/2018 Severe TR Pulm HTN HTN Hypokalemia Thrombocytopenia - appears chronic Tobacco use Emphysema H/o breast CA s/p left mastectomy in 2001 Plan: Cont GDMT and IV lasix BID as tolerated. Will initiate low dose aldactone. Replete K+ and repeat BMP in AM. F/u echo. The patient has been seen in conjunction with Dr. Barton who agrees with the assessment and plan of care.
[2018-11-05] MEDS: COZAAR PO SCH (12:08)
[2018-11-05] MEDS: COREG PO SCH ×2 (12:09→22:19)
[2018-11-05] MEDS: PEPCID PO SCH ×2 (12:09→22:19)
[2018-11-05] MEDS: SODIUM CHLORIDE FLUSH SYRINGE 10 ML IV SCH ×2 (12:13→22:19)
[2018-11-05] MEDS: ZAROXOLYN PO SCH ×2 (12:20→22:19)
[2018-11-05] MEDS ORDERED: ALDACTONE PO SCH (14:00)
[2018-11-05] MEDS ORDERED: PULMICORT IH SCH (14:26)
[2018-11-05] MEDS ORDERED: BROVANA NEBU IH SCH (14:27)
--- NOTE | 2018-11-05 14:33 | Progress Note ---
Assessment and Plan Assessment and plan: 63-year-old -Swiss female with past medical history significant for chronic systolic and diastolic CHF, repetition, COPD presented to the emergency department his complains of shortness of breath Acute on chronic combined CHF exacerbation - Patient is on IV Lasix 40 mg 2 times a day - Continue appropriate home CHF medications - We'll monitor electrolytes - Echo from this morning shows ejection fraction of 10-15%, grade 3 diastolic dysfunction - Cardiology consult appreciated COPD exacerbation - Patient is on by mouth prednisone, breathing treatments and oxygen support Hypertension - Continue home medications DVT prophylaxis Disposition - Continue inpatient care. History Interval history: Patient was seen and evaluated this morning, patient is complaining SOB. Hospitalist Physical - Physical exam Narrative exam: Not in cardiopulmonary distress. The patient appeared well nourished and normally developed. Vital signs as documented. Head exam is unremarkable. No scleral icterus . Neck is without jugular venous distension, thyromegaly, or carotid bruits. Lungs are clear to auscultation. Cardiac exam reveals regular rate and Rhythm. Abdominal exam reveals normal bowel sounds. Extremities are nonedematous. MIXER AND SCALER: Alert and oriented 3. No focal weakness. - Constitutional Vitals: Temp Pulse Resp BP Pulse Ox 98.0 F 77 16 117/81 100 11/05/18 11:51 11/05/18 13:18 11/05/18 13:18 11/05/18 12:08 11/05/18 13:03 General appearance: Present: no acute distress Results - Labs CBC & Chem 7: 11/05/18 08:21 11/05/18 08:21 Labs: Laboratory Last Values WBC 2.8 K/mm3 (4.5-11.0) L 11/05/18 08:21 RBC 4.13 M/mm3 (3.65-5.03) 11/05/18 08:21 Hgb 13.9 gm/dl (10.1-14.3) 11/05/18 08:21 Hct 42.1 % (30.3-42.9) 11/05/18 08:21 MCV 102 fl (79-97) H 11/05/18 08:21 MCH 34 pg (28-32) H 11/05/18 08:21 MCHC 33 % (30-34) 11/05/18 08:21 RDW 15.3 % (13.2-15.2) H 11/05/18 08:21 Plt Count 134 K/mm3 (140-440) L 11/05/18 08:21 Lymph % (Auto) 35.1 % (13.4-35.0) H 11/04/18 12:22 [place] % (Auto) 11.1 % (0.0-7.3) H 11/04/18 12:22 Eos % (Auto) 6.0 % (0.0-4.3) H 11/04/18 12:22 Baso % (Auto) 1.2 % (0.0-1.8) 11/04/18 12:22 Lymph # 1.0 K/mm3 (1.2-5.4) L 11/04/18 12:22 [place] # 0.3 K/mm3 (0.0-0.8) 11/04/18 12:22 Eos # 0.2 K/mm3 (0.0-0.4) 11/04/18 12:22 Baso # 0.0 K/mm3 (0.0-0.1) 11/04/18 12:22 Add Manual Diff Complete 11/05/18 08:21 Total Counted 100 11/05/18 08:21 Seg Neutrophils % Artist Blacksmith 11/05/18 08:21 Seg Neuts % (Manual) 37.0 % (40.0-70.0) L 11/05/18 08:21 0 % 11/05/18 08:21 49.0 % (13.4-35.0) H 11/05/18 08:21 Reactive Lymphs % (Man) 1.0 % 11/05/18 08:21 9.0 % (0.0-7.3) H 11/05/18 08:21 2.0 % (0.0-4.3) 11/05/18 08:21 2.0 % (0.0-1.8) H 11/05/18 08:21 0 % 11/05/18 08:21 0 % 11/05/18 08:21 0 % 11/05/18 08:21 0 % 11/05/18 08:21 Nucleated RBC % Not Reportable 11/05/18 08:21 Seg Neutrophils # 1.3 K/mm3 (1.8-7.7) L 11/04/18 12:22 Seg Neutrophils # Man 1.0 K/mm3 (1.8-7.7) L 11/05/18 08:21 Band Neutrophils # 0.0 K/mm3 11/05/18 08:21 1.4 K/mm3 (1.2-5.4) 11/05/18 08:21 Abs React Lymphs (Man) 0.0 K/mm3 11/05/18 08:21 0.3 K/mm3 (0.0-0.8) 11/05/18 08:21 0.1 K/mm3 (0.0-0.4) 11/05/18 08:21 0.1 K/mm3 (0.0-0.1) 11/05/18 08:21 0.0 K/mm3 11/05/18 08:21 0.0 K/mm3 11/05/18 08:21 0.0 K/mm3 11/05/18 08:21 Blast Cells # 0.0 K/mm3 11/05/18 08:21 WBC Morphology Not Reportable 11/05/18 08:21 Hypersegmented Neuts Not Reportable 11/05/18 08:21 Hyposegmented Neuts Not Reportable 11/05/18 08:21 Hypogranular Neuts Not Reportable 11/05/18 08:21 Not Reportable 11/05/18 08:21 Not Reportable 11/05/18 08:21 Not Reportable 11/05/18 08:21 Not Reportable 11/05/18 08:21 Not Reportable 11/05/18 08:21 Not Reportable 11/05/18 08:21 Consistent w auto 11/05/18 08:21 Not Reportable 11/05/18 08:21 Plt Clumps, EDTA Not Reportable 11/05/18 08:21 Few 11/05/18 08:21 Not Reportable 11/05/18 08:21 Not Reportable 11/05/18 08:21 Plt Morphology Comment Not Reportable 11/05/18 08:21 RBC Morphology Not Reportable 11/05/18 08:21 Dimorphic RBCs Not Reportable 11/05/18 08:21 Not Reportable 11/05/18 08:21 Not Reportable 11/05/18 08:21 Not Reportable 11/05/18 08:21 1+ 11/05/18 08:21 Not Reportable 11/05/18 08:21 Not Reportable 11/05/18 08:21 Not Reportable 11/05/18 08:21 Not Reportable 11/05/18 08:21 Not Reportable 11/05/18 08:21 Not Reportable 11/05/18 08:21 Not Reportable 11/05/18 08:21 Not Reportable 11/05/18 08:21 Not Reportable 11/05/18 08:21 Not Reportable 11/05/18 08:21 Not Reportable 11/05/18 08:21 Not Reportable 11/05/18 08:21 Not Reportable 11/05/18 08:21 Not Reportable 11/05/18 08:21 Not Reportable 11/05/18 08:21 Acanthocytes (Spur) Not Reportable 11/05/18 08:21 Rouleaux Not Reportable 11/05/18 08:21 Not Reportable 11/05/18 08:21 Not Reportable 11/05/18 08:21 Not Reportable 11/05/18 08:21 Not Reportable 11/05/18 08:21 Hem Pathologist Commnt No 11/05/18 08:21 Sodium 146 mmol/L (137-145) H 11/05/18 08:21 Potassium 3.0 mmol/L (3.6-5.0) L 11/05/18 08:21 Chloride 100.9 mmol/L (98-107) 11/05/18 08:21 Carbon Dioxide 32 mmol/L (22-30) H 11/05/18 08:21 16 mmol/L 11/05/18 08:21 BUN 16 mg/dL (7-17) 11/05/18 08:21 1.1 mg/dL (0.7-1.2) 11/05/18 08:21 Estimated GFR > 60 ml/min 11/05/18 08:21 15 % 11/05/18 08:21 Glucose 108 mg/dL (65-100) H 11/05/18 08:21 5.6 % (4-6) 11/04/18 12:22 Calcium 8.9 mg/dL (8.4-10.2) 11/05/18 08:21 Magnesium 1.90 mg/dL (1.7-2.3) 11/04/18 12:22 0.60 mg/dL (0.1-1.2) 11/05/18 08:21 AST 33 units/L (5-40) 11/05/18 08:21 ALT 20 units/L (7-56) 11/05/18 08:21 124 units/L (35-129) 11/05/18 08:21 NT-Pro-B Natriuret Pep 4620 pg/mL (0-900) H 11/04/18 12:22 6.3 g/dL (6.3-8.2) 11/05/18 08:21 3.6 g/dL (3.9-5) L 11/05/18 08:21 1.3 % 11/05/18 08:21 Active Medications - Current Medications Current Medications: Generic Name Dose Route Start Last Admin Trade Name Freq PRN Reason Stop Dose Admin Acetaminophen 650 mg 11/04/18 21:27 Tylenol PO Q4H PRN Pain MILD(1-3)/Fever >100.5/MAO Albuterol 2.5 mg 11/05/18 08:00 11/05/18 13:05 Proventil IH 2.5 mg QIDRT RUTHY Administration Albuterol 2.5 mg 11/05/18 00:15 11/05/18 00:38 Proventil IH 2.5 mg Q4HRT PRN Administration Shortness Of Breath Arformoterol Tartrate 15 mcg 11/05/18 14:27 Brovana Nebu IH Q12HRT RUTHY Budesonide 0.5 mg 11/05/18 14:26 Pulmicort IH Q12HRT [facility] Carvedilol 6.25 mg 11/04/18 22:00 11/05/18 12:09 Coreg PO 6.25 mg BID RUTHY Administration Enoxaparin Sodium 40 mg 11/05/18 22:00 Lovenox SUB-Q QDAY@2200 [facility] Famotidine 20 mg 11/04/18 22:00 11/05/18 12:09 Pepcid PO 20 mg BID RUTHY Administration Fish Oil 1,000 mg 11/05/18 10:00 11/05/18 12:09 Fish Oil PO 1,000 mg DAILY RUTHY Administration Furosemide 40 mg 11/05/18 06:00 11/05/18 06:26 Lasix IV 40 mg 0600,1800 RUTHY Administration Hydromorphone HCl 0.5 mg 11/04/18 21:27 Dilaudid IV Q3H PRN Pain , Severe (7-10) Losartan Potassium 50 mg 11/04/18 22:00 11/05/18 12:08 Cozaar PO 50 mg QDAY RUTHY Administration Metolazone 5 mg 11/04/18 22:00 11/05/18 12:20 Zaroxolyn PO 5 mg Q12H RUTHY Administration Ondansetron HCl 4 mg 11/04/18 21:27 Zofran IV Q8H PRN Nausea And Vomiting Oxycodone/Acetaminophen 1 tab 11/04/18 21:27 Percocet 5/325 PO Q6H PRN Pain, Moderate (4-6) Prednisone 40 mg 11/05/18 15:00 Deltasone PO QDAY RUTHY Sodium Chloride 10 ml 11/04/18 22:00 11/05/18 12:13 Sodium Chloride Flush Syringe 10 Ml IV 10 ml BID RUTHY Administration Sodium Chloride 10 ml 11/04/18 21:27 11/05/18 06:27 Sodium Chloride Flush Syringe 10 Ml IV 10 ml PRN PRN Administration LINE FLUSH Spironolactone 12.5 mg 11/05/18 14:00 Aldactone PO QDAY RUTHY
[2018-11-05] MEDS ORDERED: DELTASONE PO SCH (15:00)
[2018-11-05] MEDS: PULMICORT IH SCH ×2 (19:59→20:05)
[2018-11-05] MEDS: BROVANA NEBU IH SCH (20:05)
[2018-11-05] MEDS ORDERED: LOVENOX SUB-Q SCH (22:00)
[2018-11-05] MEDS ORDERED: LASIX IV ONE (22:00)
[2018-11-06 05:43] VITALS: BP 136/91
[2018-11-06] MEDS: SODIUM CHLORIDE FLUSH SYRINGE 10 ML IV PRN (06:19)
[2018-11-06] MEDS: LASIX IV SCH (06:19)
[2018-11-06 07:22] LABS: Basophils % (Auto) 0.8 % (0.0-1.8); Eosinophils % (Auto) 0.1 % (0.0-4.3); Hematocrit 44.2 % (30.3-42.9); Hemoglobin 14.7 gm/dl (10.1-14.3); Lymphocytes # (Auto) 0.6 K/mm3 (1.2-5.4); Lymphocytes % (Auto) 22.5 % (13.4-35.0); Mean Corpuscular HGB Conc 33 % (30-34); Mean Corpuscular Volume 101 fl (79-97); Monocytes # (Auto) 0.1 K/mm3 (0.0-0.8); Monocytes % (Auto) 4.3 % (0.0-7.3); Platelet Count 158 K/mm3 (140-440); Red Blood Count 4.37 M/mm3 (3.65-5.03); Red Cell Distribution Width 14.8 % (13.2-15.2)
[2018-11-06 07:34] LABS: BUN/Creatinine Ratio 22; Blood Urea Nitrogen 24 mg/dL (7-17); Calcium 9.5 mg/dL (8.4-10.2); Hemolysis Index 8
[2018-11-06] MEDS: PROVENTIL IH SCH (07:35)
[2018-11-06] MEDS: BROVANA NEBU IH SCH (07:35)
[2018-11-06] MEDS: PULMICORT IH SCH (07:35)
[2018-11-06] MEDS ORDERED: K-DUR PO ONE (09:00)
--- NOTE | 2018-11-06 10:12 | Discharge Summary ---
Providers - Providers Date of Admission: 11/04/18 17:13 Attending physician: WILLIAM VINCENT MD 11/04/18 21:36 Consult to Physician [CONS] Routine Comment: Consulting Provider: BLANCHE HENRY Physician Instructions: Reason For Exam: CHF exacerbation Primary care physician: JONATHAN ELIZONDO Hospitalization Reason for admission: CHF exacerbation, COPD Condition: Stable Pertinent studies: Echo Hospital course: 63-year-old -Japanese female with past medical history significant for chronic systolic and diastolic CHF, HTN, COPD presented to the emergency department his complains of shortness of breath. Acute on chronic combined CHF exacerbation; patient was diuresed adequately, appropriate medications continued. Cardiology evaluated the patient and did echo and cleared for discharge with follow-up appointment in their office. COPD exacerbation; was treated with by mouth steroids, breathing treatments and oxygen support. Patient improved. Hypertension controlled to his home medications. Patient was hemodynamically stable and discharged home. Disposition: TO HOME OR SELFCARE Time spent for discharge: 32 minutes - Discharge Diagnoses (1) Acute exacerbation of CHF (congestive heart failure) Status: Acute Qualifiers: Heart failure type: combined systolic and diastolic Qualified Code(s): I50.43 - Acute on chronic combined systolic (congestive) and diastolic (congestive) heart failure (2) COPD (chronic obstructive pulmonary disease) Status: Chronic Qualifiers: COPD type: unspecified COPD Qualified Code(s): J44.9 - Chronic obstructive pulmonary disease, unspecified (3) Hypertension Status: Chronic Qualifiers: Hypertension type: essential hypertension Qualified Code(s): I10 - Essential (primary) hypertension Core Measure Documentation - Palliative Care Palliative Care/ Comfort Measures: Not Applicable - Core Measures Any of the following diagnoses?: heart failure - Heart Failure Discharge Requirements BRITTANEY/ARB for LVSD if EF <40%: Yes Beta adiel at discharge: Yes Exam - Physical Exam Narrative exam: Not in cardiopulmonary distress. The patient appeared well nourished and normally developed. Vital signs as documented. Head exam is unremarkable. No scleral icterus . Neck is without jugular venous distension, thyromegaly, or carotid bruits. Lungs are clear to auscultation. Cardiac exam reveals regular rate and Rhythm. Abdominal exam reveals normal bowel sounds. Extremities are nonedematous. CREDIT RISK REVIEW OFFICER: Alert and oriented 3. No focal weakness. - Constitutional Vitals: Temp Pulse Resp BP Pulse Ox 97.4 F L 61 18 136/91 100 11/06/18 05:03 11/06/18 07:36 11/06/18 07:36 11/06/18 05:03 11/06/18 07:36 Plan Activity: no restrictions Weight Bearing Status: Full Weight Bearing Diet: low cholesterol, low salt Follow up with: JONATHAN ELIZONDO JR, MD [Primary Care Provider] - 3-5 Days
--- NOTE | 2018-11-06 10:38 | Progress Note ---
Assessment and Plan Assessment: Acute on chronic HF with reduced ejection fraction NICMP - EF 20-25%; [facility] in 2007 with normal coronaries; Stress thallium test done 03/2018 was negative for any significant ischemia or infarction, EF 15%. AICD in situ, s/p AICD gen change 03/2018 Severe TR Pulm HTN HTN Hypokalemia Thrombocytopenia - appears chronic Tobacco use Emphysema H/o breast CA s/p left mastectomy in 2001 Plan: Echo reviewed - EF 10-15%, mod LVH, dilated LA, mild MR, mild AR, severe TR, mod pericardial effusion with no evidence of tamponade, grade 3 diastolic dysfunction, pacing wire in right chambers, mildly dilated and mildly hypokinetic RV, atrial septal aneurysm. Currently stable cardiac status. Pt may discharge home from cardiology standpoint. Recommend f/u echo in our office for reevaluation of pericardial effusion. Recommend PO lasix 40mg BID at discharge. Cont coreg, losartan, aldactone. Recommend pt follow up in our office with Dr. Blair within 3-5 days of hospital discharge ([phone]). Pt verbalizes understanding. The patient has been seen in conjunction with Dr. Barton who agrees with the assessment and plan of care. Subjective Date of service: 11/06/18 Principal diagnosis: HF Interval history: pt resting in bed, states she is feeling much better today and feels ready to discharge home. Objective Last Vital Signs Temp 97.4 F L 11/06/18 05:03 Pulse 61 11/06/18 07:36 Resp 18 11/06/18 07:36 BP 136/91 11/06/18 05:03 Pulse Ox 100 11/06/18 07:36 - Physical Examination General: No Apparent Distress HEENT: Positive: PERRL, Normocephaly, Mucus Membranes Moist Neck: Positive: neck supple, trachea midline Cardiac: Positive: Reg Rate and Rhythm, S1/S2 Lungs: Positive: Decreased Breath Sounds Neuro: Positive: Grossly Intact Abdomen: Negative: Tender Skin: Negative: Rash Musculoskeletal: No Pain Extremities: Absent: edema - Labs and Meds CBC 11/06/18 Range/Units 07:09 WBC 2.7 L (4.5-11.0) K/mm3 RBC 4.37 (3.65-5.03) M/mm3 Hgb 14.7 H (10.1-14.3) gm/dl Hct 44.2 H (30.3-42.9) % Plt Count 158 (140-440) K/mm3 Lymph # 0.6 L (1.2-5.4) K/mm3 [place] # 0.1 (0.0-0.8) K/mm3 Eos # 0.0 (0.0-0.4) K/mm3 Baso # 0.0 (0.0-0.1) K/mm3 Comprehensive Metabolic Panel 11/06/18 Range/Units 07:09 Sodium 141 (137-145) mmol/L Potassium 3.5 L (3.6-5.0) mmol/L Chloride 96.1 L (98-107) mmol/L Carbon Dioxide 32 H (22-30) mmol/L BUN 24 H (7-17) mg/dL Creatinine 1.1 (0.7-1.2) mg/dL Glucose 158 H (65-100) mg/dL Calcium 9.5 (8.4-10.2) mg/dL - Imaging and Cardiology EKG: report reviewed, image reviewed Echo: report reviewed (01/2018 showed EF 20-25%, LV mildly dilated, grade 3 diastolic dysfunction, RV mildly dilated, LA severely enlarged, RA mod enlarged, severe TR, mod pulm HTN with RVSP 59mmHg ) Cardiac cath: report reviewed ([facility] done 05/2008 showed normal coronaries, EF 35%. ) - EKG Sinus rhythms and dysrhythmias: sinus rhythm Chamber hypertrophy or enlargement: left ventricular hypertro
== END 2018-11-06 10:29 | disposition home health service (06) | DRG 293 ==
LOC: ED 10:23 → 3A 17:13
PROVIDERS: ADMIT Internal Medicine; ATTEND Internal Medicine
DX: I11.0 Hypertensive heart disease with heart failure (principal); J43.9 Emphysema, unspecified; I50.43 Acute on chronic combined systolic (congestive) and diastolic (congestive) heart failure; I42.8 Other cardiomyopathies; E87.6 Hypokalemia; I27.20 Pulmonary hypertension, unspecified; F17.200 Nicotine dependence, unspecified, uncomplicated; D69.6 Thrombocytopenia, unspecified; Z85.3 Personal history of malignant neoplasm of breast; Z90.12 Acquired absence of left breast and nipple; Z79.899 Other long term (current) drug therapy; Z95.810 Presence of automatic (implantable) cardiac defibrillator; Z72.89 Other problems related to lifestyle; Z82.49 Family history of ischemic heart disease and other diseases of the circulatory system
CPT/HCPCS: 36415; 71045; 80048; 80053; 83036; 83735; 83880; 85007; 85025; 93005; 93010; 93306; 94640; 94760; 96374; G0378; J1650; J1940; J7512

== ENCOUNTER 2018-12-03 13:43 | Emergency (ER) | payer MEDICARE | END 2018-12-03 18:29 | disposition left against medical advice (07) | LOC: ED 13:43 | DX: R21 Rash and other nonspecific skin eruption (principal); Z53.21 Procedure and treatment not carried out due to patient leaving prior to being seen by health care provider ==

== ENCOUNTER 2019-08-19 14:29 | Observation (INO) | payer MEDICARE ==
--- NOTE | 2019-08-19 14:48 | Event Note ---
ED Screening Note Date of service: 08/19/19 Time: 14:46 ED Screening Note: 64 y o female with PMH of CHF,HTN presents with cc od sob and xhest pain x 2 days worsening cc of fluid retention This initial assessment/diagnostic orders/clinical plan/treatment(s) is/are subject to change based on patients health status, clinical progression and re- assessment by fellow clinical providers in the ED. Further treatment and workup at subsequent clinical providers discretion. Patient/guardian urged not to elope from the ED as their condition may be serious if not clinically assessed and managed. Initial orders include: labs main side
[2019-08-19 15:39] LABS: Basophils # (Auto) 0.1 K/mm3 (0.0-0.1); Basophils % (Auto) 1.2 % (0.0-1.8); Eosinophils # (Auto) 0.1 K/mm3 (0.0-0.4); Hematocrit 40.6 % (30.3-42.9); Hemoglobin 13.5 gm/dl (10.1-14.3); Lymphocytes # (Auto) 1.4 K/mm3 (1.2-5.4); Lymphocytes % (Auto) 27.8 % (13.4-35.0); Mean Corpuscular HGB Conc 33 % (30-34); Mean Corpuscular Volume 100 fl (79-97); Monocytes # (Auto) 0.3 K/mm3 (0.0-0.8); Monocytes % (Auto) 6.1 % (0.0-7.3); Platelet Count 152 K/mm3 (140-440); Red Blood Count 4.05 M/mm3 (3.65-5.03); Red Cell Distribution Width 15.2 % (13.2-15.2)
[2019-08-19 15:50] LABS: INR 1.14 (0.87-1.13)
[2019-08-19 15:54] LABS: BUN/Creatinine Ratio 15; Blood Urea Nitrogen 15 mg/dL (7-17); Calcium 9.6 mg/dL (8.4-10.2); Hemolysis Index 12
--- NOTE | 2019-08-19 15:59 | XRay Report ---
CHEST 2 VIEWS INDICATION: Chest Pain. COMPARISON: 11/04/2018 FINDINGS: Support devices: A pacing device with single AICD lead in satisfactory position. Heart: Cardiomegaly but the heart is smaller compared to the prior exam. Pulmonary vasculature: Normal pulmonary vasculature. Lungs/pleura: No acute air space or interstitial disease. No pneumothorax. Additional findings: None. IMPRESSION: 1. Cardiomegaly but no CHF. Signer Name: Louis Rubio MD Signed: 08/19/2019 3:55 PM Workstation Name: [id number]
[2019-08-19] MEDS ORDERED: FUROSEMIDE 40 MG/4 ML INJ IV ONE (18:38)
--- NOTE | 2019-08-19 19:09 | Emergency Department Report ---
ED General Adult HPI - General Chief complaint: Dyspnea/Respdistress Stated complaint: CHF, SOB Time Seen by Provider: 08/19/19 17:22 Source: patient Mode of arrival: Ambulatory Limitations: No Limitations - History of Present Illness Initial comments: Patient presents to the emergency department the chief complaint of increased shortness of breath for the last week. Patient states she has a history of COPD and congestive heart failure. Patient states that she began to have difficulty laying flat last week and increase her daily Lasix dosage from 40 mg to 80 mg daily. Patient still complains of having shortness of breath when lying flat. Patient also complains of chest tightness but denies any neris chest pain. Patient denies headache, abdominal pain, headache. -: Gradual Severity scale (0 -10): 1 Quality: dull Consistency: constant Improves with: other (Sitting upright) Worsens with: other (Lying flat) Associated Symptoms: shortness of breath - Related Data Home Medications Medication Instructions Recorded Confirmed Last Taken Furosemide [Lasix TAB] 40 mg PO QDAY 06/27/16 08/19/19 11/04/18 Potassium Citrate [Potassium 10 meq PO DAILY 06/27/16 08/19/19 11/03/18 Citrate ER] [place]-3 Fatty Acids/Fish Oil [Fish 1 each PO DAILY 11/04/18 08/19/19 11/03/18 Oil] carvediloL [Coreg] 12.5 mg PO BID 08/19/19 08/19/19 Unknown Previous Rx's Medication Instructions Recorded Last Taken Type ALBUTEROL Inhaler(NF) [VENTOLIN 1 puff IH QIDRT #1 inha 04/15/18 11/03/18 Rx Inhaler(NF)] Losartan [Cozaar] 50 mg PO QDAY #30 tablet 04/15/18 11/03/18 Rx Allergies Allergy/AdvReac Type Severity Reaction Status Date / Time No Known Allergies Allergy Verified 12/03/18 13:44 ED Review of Systems ROS: Stated complaint: CHF, SOB Other details as noted in HPI Constitutional: denies: chills, fever Eyes: denies: eye pain, eye discharge, vision change ENT: denies: ear pain, throat pain Respiratory: shortness of breath. denies: cough, wheezing Cardiovascular: denies: chest pain, palpitations Endocrine: no symptoms reported Gastrointestinal: denies: abdominal pain, nausea, diarrhea Genitourinary: denies: urgency, dysuria, discharge Musculoskeletal: denies: back pain, joint swelling, arthralgia Skin: denies: rash, lesions Neurological: denies: headache, weakness, paresthesias Psychiatric: denies: anxiety, depression Hematological/Lymphatic: denies: easy bleeding, easy bruising ED Past Medical Hx - Past Medical History Previous Medical History?: Yes Hx Hypertension: Yes Hx Congestive Heart Failure: Yes Hx Sickle Cell Disease: No Hx COPD: Yes Hx HIV: No Additional medical history: defibrillator since , has never fired - Surgical History Past Surgical History?: Yes Hx Pacemaker: Yes Hx Internal Defibrillator: Yes Hx Breast Surgery: Yes (L radical mastectomy) - Social History Smoking Status: Never Smoker Substance Use Type: None - Medications Home Medications: Home Medications Medication Instructions Recorded Confirmed Last Taken Type Furosemide [Lasix TAB] 40 mg PO QDAY 06/27/16 08/19/19 11/04/18 History Potassium Citrate [Potassium 10 meq PO DAILY 06/27/16 08/19/19 11/03/18 History Citrate ER] ALBUTEROL Inhaler(NF) [VENTOLIN 1 puff IH QIDRT #1 inha 04/15/18 08/19/19 11/03/18 Rx Inhaler(NF)] Losartan [Cozaar] 50 mg PO QDAY #30 tablet 04/15/18 08/19/19 11/03/18 Rx [place]-3 Fatty Acids/Fish Oil [Fish 1 each PO DAILY 11/04/18 08/19/19 11/03/18 History Oil] carvediloL [Coreg] 12.5 mg PO BID 08/19/19 08/19/19 Unknown History ED Physical Exam - General Limitations: No Limitations General appearance: alert, in no apparent distress - Head Head exam: Present: atraumatic, normocephalic - Eye Eye exam: Present: normal appearance - ENT ENT exam: Present: mucous membranes moist - Neck Neck exam: Present: normal inspection - Respiratory Respiratory exam: Present: rales. Absent: respiratory distress - Cardiovascular Cardiovascular Exam: Present: regular rate, normal rhythm. Absent: systolic murmur, diastolic murmur, rubs, gallop - GI/Abdominal GI/Abdominal exam: Present: soft, normal bowel sounds. Absent: distended, tenderness - Extremities Exam Extremities exam: Present: normal inspection - Back Exam Back exam: Present: normal inspection - Neurological Exam Neurological exam: Present: alert, oriented X3, CN II-XII intact. Absent: motor sensory deficit - Psychiatric Psychiatric exam: Present: normal affect, normal mood - Skin Skin exam: Present: warm, dry, intact, normal color. Absent: rash ED Course Vital Signs 08/19/19 08/19/19 08/19/19 14:45 18:31 18:34 Temperature 97.9 F 98.2 F Pulse Rate 94 H 95 H Respiratory 24 13 Rate Blood Pressure 151/89 Blood Pressure 166/100 [Left] O2 Sat by Pulse 99 100 100 Oximetry 08/19/19 19:00 Temperature Pulse Rate 109 H Respiratory 22 Rate Blood Pressure 160/110 Blood Pressure [Left] O2 Sat by Pulse 98 Oximetry ED Medical Decision Making - Lab Data Result diagrams: 08/19/19 15:28 08/19/19 15:28 Lab Results 08/19/19 08/19/19 08/19/19 Range/Units 15:28 15:28 15:28 WBC 5.0 (4.5-11.0) K/mm3 RBC 4.05 (3.65-5.03) M/mm3 Hgb 13.5 (10.1-14.3) gm/dl Hct 40.6 (30.3-42.9) % MCV 100 H (79-97) fl MCH 33 H (28-32) pg MCHC 33 (30-34) % RDW 15.2 (13.2-15.2) % Plt Count 152 (140-440) K/mm3 Lymph % (Auto) 27.8 (13.4-35.0) % [place] % (Auto) 6.1 (0.0-7.3) % Eos % (Auto) 2.0 (0.0-4.3) % Baso % (Auto) 1.2 (0.0-1.8) % Lymph # 1.4 (1.2-5.4) K/mm3 [place] # 0.3 (0.0-0.8) K/mm3 Eos # 0.1 (0.0-0.4) K/mm3 Baso # 0.1 (0.0-0.1) K/mm3 Seg Neutrophils % 62.9 (40.0-70.0) % Seg Neutrophils # 3.1 (1.8-7.7) K/mm3 PT 14.8 (12.2-14.9) Sec. INR 1.14 H (0.87-1.13) APTT 27.0 (24.2-36.6) Sec. Sodium 144 (137-145) mmol/L Potassium 2.9 L* (3.6-5.0) mmol/L Chloride 100.9 (98-107) mmol/L Carbon Dioxide 24 (22-30) mmol/L Anion Gap 22 mmol/L BUN 15 (7-17) mg/dL Creatinine 1.0 (0.7-1.2) mg/dL Estimated GFR > 60 ml/min BUN/Creatinine Ratio 15 % Glucose 97 (65-100) mg/dL Calcium 9.6 (8.4-10.2) mg/dL Troponin T 0.022 (0.00-0.029) ng/mL NT-Pro-B Natriuret Pep (0-900) pg/mL 08/19/19 08/19/19 Range/Units 17:08 18:01 WBC (4.5-11.0) K/mm3 RBC (3.65-5.03) M/mm3 Hgb (10.1-14.3) gm/dl Hct (30.3-42.9) % MCV (79-97) fl MCH (28-32) pg MCHC (30-34) % RDW (13.2-15.2) % Plt Count (140-440) K/mm3 Lymph % (Auto) (13.4-35.0) % [place] % (Auto) (0.0-7.3) % Eos % (Auto) (0.0-4.3) % Baso % (Auto) (0.0-1.8) % Lymph # (1.2-5.4) K/mm3 [place] # (0.0-0.8) K/mm3 Eos # (0.0-0.4) K/mm3 Baso # (0.0-0.1) K/mm3 Seg Neutrophils % (40.0-70.0) % Seg Neutrophils # (1.8-7.7) K/mm3 PT (12.2-14.9) Sec. INR (0.87-1.13) APTT (24.2-36.6) Sec. Sodium (137-145) mmol/L Potassium (3.6-5.0) mmol/L Chloride (98-107) mmol/L Carbon Dioxide (22-30) mmol/L Anion Gap mmol/L BUN (7-17) mg/dL Creatinine (0.7-1.2) mg/dL Estimated GFR ml/min BUN/Creatinine Ratio % Glucose (65-100) mg/dL Calcium (8.4-10.2) mg/dL Troponin T 0.020 (0.00-0.029) ng/mL NT-Pro-B Natriuret Pep 8836 H (0-900) pg/mL - EKG Data -: EKG Interpreted by Me EKG shows normal: sinus rhythm Rate: normal - Radiology Data Radiology results: report reviewed - Medical Decision Making iv LASIX AND iv POTASSIUM GIVEN Critical Care Time: Yes Critical care time in (mins) excluding proc time.: 35 Critical care attestation.: If time is entered above; I have spent that time in minutes in the direct care of this critically ill patient, excluding procedure time. ED Disposition Clinical Impression: CHF (congestive heart failure), Hypokalemia Disposition: DC-09 OP ADMIT IP TO THIS HOSP Is pt being admited?: Yes Does the pt Need Aspirin: No Condition: Fair Referrals: MARIA R ELIZONDO [Other] - 3-5 Days
--- NOTE | 2019-08-19 19:10 | History and Physical Report ---
History of Present Illness Chief complaint: I cannot breathe History of present illness: 64-year-old female with chronic respiratory failure with intermittent use of supplemental oxygen, CHF, HTN, breast cancer status post chemotherapy and radiation therapy as well as radical mastectomy currently in remission, cardiom yopathy status post ICD placement presents to ED for evaluation. Patient states she has experienced shortness of breath over the past week with progressively worsening symptoms over the same timeframe. Patient acknowledges shortness of breath, orthopnea, paroxysmal nocturnal dyspnea, decreased exercise tolerance, leg edema, subjective weight gain.. Patient transported to [facility] via private vehicle for further evaluation and care. Patient seen and evaluated in the emergency department upon arrival. Lab and imaging studies reviewed. Patient found to have CHF decompensation, hypokalemia, and accelerated hypertension. Patient admitted to telemetry and initiated on CHF protocol due to high risk of cardiopulmonary decompensation. Cardiology team consult placed in the emergency department. Patient denies fever, chills, chest pain, palpitations, productive cough, skin rash, bright red blood per rectum, skin rash, or recent ill contacts. Previous admission on 11/04/2018 reviewed. All medication listed at time of admission have been reconciled. Advanced care planning conducted in ED. Past History Past Medical History: cancer, heart failure, hypertension, other (See HPI) Past Surgical History: mastectomy Social history: single. denies: smoking, alcohol abuse, prescription drug abuse Family history: hypertension Medications and Allergies Allergies Allergy/AdvReac Type Severity Reaction Status Date / Time No Known Allergies Allergy Verified 12/03/18 13:44 Home Medications Medication Instructions Recorded Confirmed Last Taken Type Furosemide [Lasix TAB] 40 mg PO QDAY 06/27/16 08/19/19 11/04/18 History Potassium Citrate [Potassium 10 meq PO DAILY 06/27/16 08/19/19 11/03/18 History Citrate ER] ALBUTEROL Inhaler(NF) [VENTOLIN 1 puff IH QIDRT #1 inha 04/15/18 08/19/19 11/03/18 Rx Inhaler(NF)] Losartan [Cozaar] 50 mg PO QDAY #30 tablet 04/15/18 08/19/19 11/03/18 Rx [place]-3 Fatty Acids/Fish Oil [Fish 1 each PO DAILY 11/04/18 08/19/19 11/03/18 History Oil] carvediloL [Coreg] 12.5 mg PO BID 08/19/19 08/19/19 Unknown History Active Meds: Active Medications Potassium Chloride (Kcl 10meq/100ml) 10 meq in 100 mls @ 100 mls/hr IV Q1H RUTHY Stop: 08/19/19 21:59 Review of Systems Constitutional: weight gain, no weight loss, no fever, no chills Ears, nose, mouth and throat: no ear pain, no ear discharge, no decreased hearing, no nasal congestion Breasts: no change in shape, no swelling, no mass Cardiovascular: orthopnea, shortness of breath, dyspnea on exertion, paroxysmal nocturnal dyspnea, decreased exercise tolerance, no chest pain Respiratory: no cough, no cough with sputum, no excessive sputum, no hemoptysis Gastrointestinal: no abdominal pain, no nausea, no vomiting, no diarrhea, no change in bowel habits Genitourinary Female: no pelvic pain, no flank pain, no menorrhagia, no dysuria, no urinary frequency, no urgency Rectal: no pain, no incontinence, no bleeding Musculoskeletal: no neck stiffness, no shooting arm pain, no arm numbness/tingling, no low back pain Integumentary: no rash, no pruritis, no redness, no sores Neurological: no head injury, no transient paralysis, no weakness, no parathesias, no numbness Psychiatric: no anxiety, no insomnia, no hypersomnia Endocrine: no cold intolerance, no heat intolerance, no excessive thirst, no polydipsia, no excessive sweating, no flushing Hematologic/Lymphatic: no easy bruising, no easy bleeding, no lymphadenopathy Allergic/Immunologic: no urticaria, no allergic rhinitis, no persistent infections, no anaphylaxis Exam - Constitutional Vitals: Temp Pulse Resp BP Pulse Ox 98.2 F 95 H 13 166/100 100 08/19/19 18:34 08/19/19 18:34 08/19/19 18:34 08/19/19 18:34 08/19/19 18:34 General appearance: Present: mild distress - EENT Eyes: Present: PERRL ENT: hearing intact, clear oral mucosa - Neck Neck: Present: supple, normal ROM - Respiratory Respiratory effort: labored, accessory muscle use Respiratory: bilateral: diminished, rales - Cardiovascular Heart Sounds: Present: S1 & S2. Absent: rub, click - Extremities Extremities: pulses symmetrical Extremity abnormal: edema Peripheral Pulses: within normal limits - Abdominal General gastrointestinal: Present: soft, non-tender, non-distended, normal bowel sounds Female genitourinary: Present: normal - Integumentary Integumentary: Present: clear, warm, dry - Musculoskeletal Musculoskeletal: gait normal, strength equal bilaterally - Psychiatric Psychiatric: appropriate mood/affect, intact judgment & insight - Neurologic Neurologic: CNII-XII intact, moves all extremities Results - Labs CBC & Chem 7: 08/19/19 15:28 08/19/19 15:28 Labs: Abnormal lab results 08/19/19 08/19/19 08/19/19 Range/Units 15:28 15:28 15:28 MCV 100 H (79-97) fl MCH 33 H (28-32) pg INR 1.14 H (0.87-1.13) Potassium 2.9 L* (3.6-5.0) mmol/L NT-Pro-B Natriuret Pep (0-900) pg/mL 08/19/19 Range/Units 18:01 MCV (79-97) fl MCH (28-32) pg INR (0.87-1.13) Potassium (3.6-5.0) mmol/L NT-Pro-B Natriuret Pep 8836 H (0-900) pg/mL Assessment and Plan - Patient Problems (1) CHF (congestive heart failure) Current Visit: Yes Status: Acute Qualifiers: Heart failure chronicity: acute Plan to address problem: Strict I's/O, daily weight, monitor urine output every shift, afterload reduction, cardiology consult placed in ED, echo 519 reviewed patient found to have ejection fraction of 10%, monitor fluid balance, submental oxygen, pulse oximetry, chest x-ray, BNP, magnesium level, thyroid panel. (2) Accelerated hypertension Current Visit: Yes Status: Acute Plan to address problem: Monitor blood pressure every shift, afterload reduction, continue medical manag ement (3) Hypokalemia Current Visit: Yes Status: Acute Plan to address problem: Potassium repleted in ED, magnesium level. (4) DVT prophylaxis Current Visit: Yes Status: Acute Plan to address problem: SCD to bilateral lower extremities while in bed, prophylactic heparin. (5) Advance care planning Current Visit: Yes Status: Acute Plan to address problem: Patient is full code, disease education conducted at bedside, patient knowledges understanding and agreement with care plan. +30 minutes.
[2019-08-19] MEDS ORDERED: ACETAMINOPHEN 325 MG TAB PO PRN (19:15)
[2019-08-19] MEDS ORDERED: ONDANSETRON 4 MG/2 ML INJ IV PRN (19:15)
[2019-08-19] MEDS ORDERED: POTASSIUM CHLORIDE 20 MEQ PACKET FEEDTUBE ONE (20:05)
[2019-08-19] MEDS: POTASSIUM CHLORIDE 10 MEQ 10 MEQ/100 ML BAG IV SCH ×2 (20:05→22:11)
[2019-08-19 20:09] LABS: Free T4 (Free Thyroxine) 1.94 ng/dL (0.76-1.46)
[2019-08-19] MEDS: carvediloL 12.5 MG TAB PO SCH (22:31)
[2019-08-20] MEDS: FUROSEMIDE 40 MG/4 ML INJ IV SCH ×2 (06:26→18:11)
[2019-08-20 06:33] LABS: Hematocrit 38.5 % (30.3-42.9); Hemoglobin 12.7 gm/dl (10.1-14.3); Mean Corpuscular HGB Conc 33 % (30-34); Mean Corpuscular Volume 101 fl (79-97); Platelet Count 150 K/mm3 (140-440); Red Blood Count 3.83 M/mm3 (3.65-5.03); Red Cell Distribution Width 15.3 % (13.2-15.2)
[2019-08-20 06:59] LABS: Alanine Aminotransferase 29 units/L (7-56); Albumin 3.7 g/dL (3.9-5); BUN/Creatinine Ratio 21; Blood Urea Nitrogen 19 mg/dL (7-17); Calcium 9.4 mg/dL (8.4-10.2); Hemolysis Index 36
[2019-08-20 07:25] LABS: Total Cells Counted 100
[2019-08-20 07:26] LABS: Platelet Estimate Consistent w Auto; Schistocytes Rare; Target Cells Rare
[2019-08-20] MEDS ORDERED: LOSARTAN 50 MG TAB PO SCH (10:00)
[2019-08-20] MEDS ORDERED: POTASSIUM CITRATE 10 MEQ PO SCH (10:00)
--- NOTE | 2019-08-20 12:57 | Consultation ---
History of Present Illness Consult date: 08/20/19 Requesting physician: ANA FAIR Consult reason: congestive heart failure History of present illness: The pt is a 64 YO female with a past medical history significant for NICMP, chronic HFrEF, AICD in situ, s/p AICD gen change 03/2018, LHC in 2007 with normal coronaries, severe TR, pulm HTN, HTN, tobacco use, emphysema, breast CA s/p left mastectomy in 2001. She is followed in our office by Dr. Blair. She presented with complaints of progressively worsening SOB, DUPREE, orthopnea and abdominal swelling for 2 weeks prior to arrival. She states that at the onset of her symptoms, she doubled her home dosage of lasix but her symptoms continued to worsen. She denies any chest pain, palpitations, n/v, diaphoresis, dizziness or syncope. She admits that she has not been taking her home coreg or Entresto. Echo done 10/2018 showed EF 10-15%, mod LVH, dilated LA, mild MR, mild AR, severe TR, mod pericardial effusion with no evidence of tamponade, grade 3 diastolic dysfunction, pacing wire in right chambers, mildly dilated and mildly hypokinetic RV, atrial septal aneurysm. LHC done 05/2008 showed normal coronaries, EF 35%. Stress thallium test done 03/2018 was negative for any significant ischemia or infarction, EF 15%. Past History Past Medical History: cancer, heart failure, hypertension, other (See HPI) Past Surgical History: mastectomy Social history: single. denies: smoking, alcohol abuse, prescription drug abuse Family history: hypertension Medications and Allergies Allergies Allergy/AdvReac Type Severity Reaction Status Date / Time No Known Allergies Allergy Verified 12/03/18 13:44 Home Medications Medication Instructions Recorded Confirmed Last Taken Type Furosemide [Lasix TAB] 40 mg PO QDAY 06/27/16 08/19/19 11/04/18 History Potassium Citrate [Potassium 10 meq PO DAILY 06/27/16 08/19/19 11/03/18 History Citrate ER] ALBUTEROL Inhaler(NF) [VENTOLIN 1 puff IH QIDRT #1 inha 04/15/18 08/19/19 11/03/18 Rx Inhaler(NF)] Losartan [Cozaar] 50 mg PO QDAY #30 tablet 04/15/18 08/19/19 11/03/18 Rx [place]-3 Fatty Acids/Fish Oil [Fish 1 each PO DAILY 11/04/18 08/19/19 11/03/18 History Oil] carvediloL [Coreg] 12.5 mg PO BID 08/19/19 08/19/19 Unknown History Active Meds: Active Medications Acetaminophen (Tylenol) 650 mg PO Q4H PRN PRN Reason: Pain MILD(1-3)/Fever >100.5/MAO Last Admin: 08/19/19 22:32 Dose: 650 mg Documented by: Carvedilol (Coreg) 12.5 mg PO BID [facility] Last Admin: 08/19/19 22:31 Dose: 12.5 mg Documented by: Fish Oil (Fish Oil) 1,000 mg PO DAILY [facility] Furosemide (Lasix) 40 mg IV BID@0600,1800 [facility] Last Admin: 08/20/19 06:26 Dose: 40 mg Documented by: Losartan Potassium (Cozaar) 50 mg PO QDAY [facility] Miscellaneous Medication (Potassium Citrate [Potassium Citrate Er]) 10 meq PO DAILY [facility] Ondansetron HCl (Zofran) 4 mg IV Q8H PRN PRN Reason: Nausea And Vomiting Sodium Chloride (Sodium Chloride Flush Syringe 10 Ml) 10 ml IV BID [facility] Last Admin: 08/19/19 22:32 Dose: 10 ml Documented by: Sodium Chloride (Sodium Chloride Flush Syringe 10 Ml) 10 ml IV PRN PRN PRN Reason: LINE FLUSH Review of Systems Constitutional: no fever, no chills, no sweats Ears, nose, mouth and throat: no ear pain, no nose pain, no sinus pressure, no sinus pain Cardiovascular: orthopnea, edema, shortness of breath, dyspnea on exertion, paroxysmal nocturnal dyspnea, high blood pressure, decreased exercise tolerance, no chest pain, no palpitations, no rapid/irregular heart beat, no syncope, no lightheadedness, no leg edema Respiratory: shortness of breath, dyspnea on exertion, no cough, no congestion, no wheezing, no pain on inspiration Gastrointestinal: no abdominal pain, no nausea, no vomiting, no diarrhea, no constipation, no change in bowel habits Genitourinary Female: no pelvic pain, no flank pain, no dysuria, no urinary frequency, no urgency Musculoskeletal: no neck stiffness, no neck pain, no shooting arm pain, no arm numbness/tingling, no low back pain, no shooting leg pain Integumentary: no rash, no pruritis, no redness, no sores, no wounds Neurological: no head injury, no paralysis, no weakness, no parathesias, no numbness, no tingling, no seizures, no syncope Psychiatric: no anxiety Endocrine: no cold intolerance, no heat intolerance Hematologic/Lymphatic: no easy bruising, no easy bleeding Allergic/Immunologic: no urticaria Physical Examination Vital Signs Temp Pulse Resp BP Pulse Ox 97.9 F 94 H 24 151/89 99 08/19/19 14:45 08/19/19 14:45 08/19/19 14:45 08/19/19 14:45 08/19/19 14:45 General appearance: no acute distress HEENT: Positive: PERRL, Normocephaly, Mucus Membranes Moist Neck: Positive: neck supple, trachea midline Cardiac: Positive: Reg Rate and Rhythm, S1/S2 Lungs: Positive: Decreased Breath Sounds Neuro: Positive: Grossly Intact Abdomen: Negative: Tender Skin: Negative: Rash Musculoskeletal: No Pain Extremities: Absent: edema Results 08/20/19 06:13 08/20/19 06:13 Cardiac Enzymes 08/20/19 Range/Units 06:13 AST 32 (5-40) units/L Coagulation 08/19/19 Range/Units 15:28 PT 14.8 (12.2-14.9) Sec. INR 1.14 H (0.87-1.13) APTT 27.0 (24.2-36.6) Sec. CBC 08/19/19 08/20/19 Range/Units 15:28 06:13 WBC 5.0 3.0 L (4.5-11.0) K/mm3 RBC 4.05 3.83 (3.65-5.03) M/mm3 Hgb 13.5 12.7 (10.1-14.3) gm/dl Hct 40.6 38.5 (30.3-42.9) % Plt Count 152 150 (140-440) K/mm3 Lymph # 1.4 (1.2-5.4) K/mm3 [place] # 0.3 (0.0-0.8) K/mm3 Eos # 0.1 (0.0-0.4) K/mm3 Baso # 0.1 (0.0-0.1) K/mm3 Comprehensive Metabolic Panel 08/19/19 08/20/19 Range/Units 15:28 06:13 Sodium 144 146 H (137-145) mmol/L Potassium 2.9 L* 3.5 L D (3.6-5.0) mmol/L Chloride 100.9 106.0 (98-107) mmol/L Carbon Dioxide 24 26 (22-30) mmol/L BUN 15 19 H (7-17) mg/dL Creatinine 1.0 0.9 (0.7-1.2) mg/dL Glucose 97 102 H (65-100) mg/dL Calcium 9.6 9.4 (8.4-10.2) mg/dL AST 32 (5-40) units/L ALT 29 (7-56) units/L Alkaline Phosphatase 111 (35-129) units/L Total Protein 6.1 L (6.3-8.2) g/dL Albumin 3.7 L (3.9-5) g/dL - Imaging and Cardiology Echo: report reviewed (10/2018 showed EF 10-15%, mod LVH, dilated LA, mild MR, mild AR, severe TR, mod pericardial effusion with no evidence of tamponade, grade 3 diastolic dysfunction, pacing wire in right chambers, mildly dilated and mildly hypokinetic RV, atrial septal aneurysm. ) Cardiac cath: report reviewed (07/2007 showed normal coronaries, EF 35%. ) EKG: report reviewed, image reviewed EKG interpretations - Telemetry EKG Rhythm: Sinus Rhythm - EKG Sinus rhythms and dysrhythmias: sinus rhythm Chamber hypertrophy or enlargement: left ventricular hypertro Assessment and Plan Assessment: Acute on chronic HFrEF Hypokalemia NICMP - EF 20-25%; [facility] in 2007 with normal coronaries; Stress thallium test done 03/2018 was negative for any significant ischemia or infarction, EF 15%. AICD in situ, s/p AICD gen change 03/2018 Severe TR Pulm HTN HTN Tobacco use Emphysema H/o breast CA s/p left mastectomy in 2001 Plan: Cont home GDMT and IV lasix BID as tolerated. Replete K+ and repeat BMP in AM. Anticipate d/c within next 24-48Hr. The patient has been seen in conjunction with Dr. Bi Petit who agrees with the assessment and plan of care.
[2019-08-20] MEDS: OMEGA-3 FATTY ACIDS/FISH OIL 1 GRAM CAP PO SCH (13:08)
[2019-08-20] MEDS: carvediloL 12.5 MG TAB PO SCH ×2 (13:08→22:09)
--- NOTE | 2019-08-20 14:34 | Progress Note ---
Assessment and Plan / CHF (congestive heart failure) with mild exacerbation Strict I's/O, daily weight, monitor urine output every shift, cardiology consult placed in ED, echo 11/02 reviewed patient found to have ejection fraction of 10%, monitor fluid balance, pulse oximetry, lasix iv / Accelerated hypertension Monitor blood pressure every shift, afterload reduction, continue medical management with home meds / Hypokalemia Potassium repleted in ED, magnesium level ordered. / DVT prophylaxis SCD to bilateral lower extremities while in bed, prophylactic heparin. / Advance care planning Patient is full code, disease education conducted at bedside, patient knowledges understanding and agreement with care plan. Subjective Date of service: 08/20/19 Interval history: Patient seen and examined c/o SOB with minimal exertion appears very frustrated, counseled at bedside denies chest pain Objective - Constitutional Vitals: Vital Signs - 12hr 08/20/19 08/20/19 08/20/19 03:54 06:00 08:07 Temperature 98.3 F Pulse Rate 73 105 H 68 Respiratory 18 Rate Blood Pressure 131/91 133/84 O2 Sat by Pulse 98 100 Oximetry 08/20/19 08/20/19 11:31 13:08 Temperature 97.5 F L Pulse Rate 73 73 Respiratory 18 Rate Blood Pressure 132/83 132/83 O2 Sat by Pulse 100 Oximetry General appearance: Present: no acute distress, well-nourished - EENT Eyes: PERRL, EOM intact ENT: hearing intact, clear oral mucosa Ears: bilateral: normal - Neck Neck: supple, normal ROM - Respiratory Respiratory effort: normal Respiratory: bilateral: rales - Cardiovascular Rhythm: regular Heart Sounds: Present: S1 & S2. Absent: gallop, rub Extremities: pulses intact, No edema, normal color, Full ROM - Gastrointestinal General gastrointestinal: Present: soft, non-tender, non-distended, normal bowel sounds - Integumentary Integumentary: clear, warm, dry - Musculoskeletal Musculoskeletal: 1, strength equal bilaterally - Neurologic Neurologic: moves all extremities - Psychiatric Psychiatric: memory intact, appropriate mood/affect, intact judgment & insight - Labs CBC & Chem 7: 08/20/19 06:13 08/21/19 05:59 Labs: Abnormal lab results 08/19/19 08/19/19 08/19/19 Range/Units 15:28 15:28 15:28 WBC (4.5-11.0) K/mm3 MCV 100 H (79-97) fl MCH 33 H (28-32) pg RDW (13.2-15.2) % Lymphocytes % (Manual) (13.4-35.0) % Seg Neutrophils # Man (1.8-7.7) K/mm3 INR 1.14 H (0.87-1.13) Sodium (137-145) mmol/L Potassium 2.9 L* (3.6-5.0) mmol/L BUN (7-17) mg/dL Glucose (65-100) mg/dL NT-Pro-B Natriuret Pep (0-900) pg/mL Total Protein (6.3-8.2) g/dL Albumin (3.9-5) g/dL Free T4 (0.76-1.46) ng/dL 08/19/19 08/19/19 08/20/19 Range/Units 18:01 19:23 06:13 WBC 3.0 L (4.5-11.0) K/mm3 MCV 101 H (79-97) fl MCH 33 H (28-32) pg RDW 15.3 H (13.2-15.2) % Lymphocytes % (Manual) 40.0 H (13.4-35.0) % Seg Neutrophils # Man 1.5 L (1.8-7.7) K/mm3 INR (0.87-1.13) Sodium (137-145) mmol/L Potassium (3.6-5.0) mmol/L BUN (7-17) mg/dL Glucose (65-100) mg/dL NT-Pro-B Natriuret Pep 8836 H (0-900) pg/mL Total Protein (6.3-8.2) g/dL Albumin (3.9-5) g/dL Free T4 1.94 H (0.76-1.46) ng/dL 08/20/19 Range/Units 06:13 WBC (4.5-11.0) K/mm3 MCV (79-97) fl MCH (28-32) pg RDW (13.2-15.2) % Lymphocytes % (Manual) (13.4-35.0) % Seg Neutrophils # Man (1.8-7.7) K/mm3 INR (0.87-1.13) Sodium 146 H (137-145) mmol/L Potassium 3.5 L D (3.6-5.0) mmol/L BUN 19 H (7-17) mg/dL Glucose 102 H (65-100) mg/dL NT-Pro-B Natriuret Pep (0-900) pg/mL Total Protein 6.1 L (6.3-8.2) g/dL Albumin 3.7 L (3.9-5) g/dL Free T4 (0.76-1.46) ng/dL
[2019-08-20] MEDS: SACUBITRIL/VALSARTAN 24-26 MG TAB PO SCH (22:14)
[2019-08-21] MEDS: FUROSEMIDE 40 MG/4 ML INJ IV SCH (05:37)
[2019-08-21 06:42] LABS: BUN/Creatinine Ratio 22; Blood Urea Nitrogen 20 mg/dL (7-17); Calcium 8.9 mg/dL (8.4-10.2); Hemolysis Index 6
[2019-08-21] MEDS ORDERED: POTASSIUM CHLORIDE ER 20 MEQ TAB PO NR ×2 (09:45→11:00)
[2019-08-21] MEDS ORDERED: POTASSIUM CITRATE 10 MEQ PO SCH (10:00)
[2019-08-21] MEDS: carvediloL 12.5 MG TAB PO SCH (10:34)
[2019-08-21] MEDS: OMEGA-3 FATTY ACIDS/FISH OIL 1 GRAM CAP PO SCH (10:34)
[2019-08-21] MEDS: SACUBITRIL/VALSARTAN 24-26 MG TAB PO SCH (10:45)
[2019-08-21 11:52] VITALS: BP 123/76
--- NOTE | 2019-08-21 12:10 | Progress Note ---
Assessment and Plan clinically improved ? i/os (discussed w/ RN) cont iv lasix ? am dc if back to baseline - Patient Problems (1) CHF (congestive heart failure) Current Visit: Yes Status: Acute Qualifiers: Heart failure chronicity: acute (2) Acute exacerbation of CHF (congestive heart failure) Current Visit: No Status: Acute Qualifiers: Heart failure type: combined systolic and diastolic Qualified Code(s): I50.43 - Acute on chronic combined systolic (congestive) and diastolic (congestive) heart failure (3) Right-sided heart failure Current Visit: No Status: Acute (4) COPD (chronic obstructive pulmonary disease) Current Visit: No Status: Chronic Qualifiers: COPD type: unspecified COPD Qualified Code(s): J44.9 - Chronic obstructive pulmonary disease, unspecified (5) Hypertension Current Visit: No Status: Chronic Qualifiers: Hypertension type: essential hypertension Qualified Code(s): I10 - Essential (primary) hypertension Subjective Date of service: 08/21/19 Interval history: feels better multiple non-medical complaints Objective Vital Signs Temp Pulse Resp BP BP Pulse Ox 08/21/19 11:52 95.8 F L 73 18 123/76 97 08/21/19 10:34 62 114/73 08/21/19 09:06 100 08/21/19 08:52 97.4 F L 58 L 16 114/73 95 08/21/19 08:00 18 96 08/21/19 03:31 97.5 F L 67 18 137/98 98 08/20/19 23:00 97.7 F 84 18 121/73 90 08/20/19 22:57 97.7 F 30 L 16 121/73 90 08/20/19 22:09 81 08/20/19 20:00 76 94 08/20/19 19:53 98.2 F 18 125/83 08/20/19 16:31 90 119/79 100 08/20/19 13:08 73 132/83 - Physical Examination HEENT: Positive: PERRL, Normocephaly, Mucus Membranes Moist Neck: Positive: neck supple, trachea midline Neuro: Positive: Grossly Intact Abdomen: Negative: Tender Skin: Negative: Rash Musculoskeletal: No Pain Extremities: Absent: edema - Labs and Meds Comprehensive Metabolic Panel 08/21/19 Range/Units 05:59 Sodium 143 (137-145) mmol/L Potassium 3.3 L (3.6-5.0) mmol/L Chloride 102.2 (98-107) mmol/L Carbon Dioxide 27 (22-30) mmol/L BUN 20 H (7-17) mg/dL Creatinine 0.9 (0.7-1.2) mg/dL Glucose 102 H (65-100) mg/dL Calcium 8.9 (8.4-10.2) mg/dL - Imaging and Cardiology EKG: report reviewed, image reviewed Echo: report reviewed (10/2018 showed EF 10-15%, mod LVH, dilated LA, mild MR, mild AR, severe TR, mod pericardial effusion with no evidence of tamponade, grade 3 diastolic dysfunction, pacing wire in right chambers, mildly dilated and mildly hypokinetic RV, atrial septal aneurysm. ) Cardiac cath: report reviewed (07/2007 showed normal coronaries, EF 35%. ) - EKG Sinus rhythms and dysrhythmias: sinus rhythm Chamber hypertrophy or enlargement: left ventricular hypertro
--- NOTE | 2019-08-21 15:03 | Discharge Summary ---
Providers - Providers Date of Admission: 08/19/19 19:15 Date of discharge: 08/21/19 Attending physician: KINGA GUEVARA 08/19/19 19:24 Consult to Physician [CONS] Routine Comment: Consulting Provider: SUJIT GRULLON Physician Instructions: Reason For Exam: chf Hospitalization Condition: Fair Hospital course: The pt is a 64 YO female with a past medical history significant for NICMP, chronic HFrEF, AICD in situ, s/p AICD gen change 03/2018, [facility] in 2007 with normal coronaries, severe TR, pulm HTN, HTN, tobacco use, emphysema, breast CA s/p left mastectomy in 2001. She is followed in our office by Dr. Blair. She presented with complaints of progressively worsening SOB, DUPREE, orthopnea and abdominal swelling for 2 weeks prior to arrival. She states that at the onset of her symptoms, she doubled her home dosage of lasix but her symptoms continued to worsen. She denies any chest pain, palpitations, n/v, diaphoresis, dizziness or syncope. She admits that she has not been taking her home coreg or Entresto. Echo done 10/2018 showed EF 10-15%, mod LVH, dilated LA, mild MR, mild AR, severe TR, mod pericardial effusion with no evidence of tamponade, grade 3 diastolic dysfunction, pacing wire in right chambers, mildly dilated and mildly hypokinetic RV, atrial septal aneurysm. LHC done 05/2008 showed normal coronaries, EF 35%. Stress thallium test done 03/2018 was negative for any significant ischemia or infarction, EF 15%. Discharge diagnosis: / CHF (congestive heart failure) with mild exacerbation Strict I's/O, daily weight, monitor urine output every shift, cardiology consult placed in ED, echo 11/02 reviewed patient found to have ejection fraction of 10%, monitor fluid balance, pulse oximetry, lasix iv / Accelerated hypertension Monitor blood pressure every shift, afterload reduction, continue medical management with home meds / Hypokalemia Potassium repleted in ED, magnesium level ordered. / Noncompliance, counseled / Advance care planning Patient is full code, disease education conducted at bedside, patient knowledges understanding and agreement with care plan. Disposition: [id number] HOME UNDER HOME [facility] Time spent for discharge: 34 minutes Core Measure Documentation - Palliative Care Palliative Care/ Comfort Measures: Not Applicable - Core Measures Any of the following diagnoses?: heart failure - Heart Failure Discharge Requirements BRITTANEY/ARB for LVSD if EF <40%: Yes Beta adiel at discharge: Yes Exam - Constitutional Vitals: Temp Pulse Resp BP Pulse Ox 95.8 F L 73 18 123/76 97 08/21/19 11:52 08/21/19 11:52 08/21/19 11:52 08/21/19 11:52 08/21/19 11:52 Plan Activity: advance as tolerated Weight Bearing Status: Non-Weight Bearing Diet: low fat, low salt Special Instructions: restrict fluid intake to (1.2L daily) Follow up with: MARIA R ELIZONDO [Other] - 3-5 Days Prescriptions: Aspirin [Aspirin BABY CHEW TAB] 81 mg PO QDAY #30 tab.chew Sacubitril/Valsartan [Entresto 24 - 26 mg] 1 each PO BID #60 tablet
== END 2019-08-21 17:49 | disposition home or self-care (01) ==
LOC: ED 14:29 → 4A 19:15 → INTOOBSV 19:15 → 4A 20:36
PROVIDERS: ADMIT Internal Medicine; ATTEND Internal Medicine
DX: I11.0 Hypertensive heart disease with heart failure (principal); I50.9 Heart failure, unspecified; E87.6 Hypokalemia; J44.9 Chronic obstructive pulmonary disease, unspecified; Z85.3 Personal history of malignant neoplasm of breast; Z95.0 Presence of cardiac pacemaker; Z98.890 Other specified postprocedural states
CPT/HCPCS: 36415; 71046; 80048; 80053; 83735; 83880; 84439; 84443; 84484; 85007; 85025; 85610; 85730; 87116; 93005; 93010; 94760; 96374; 96376; 99291; G0378; J1940; J3480; J3246

== ENCOUNTER 2020-12-02 10:47 | Outpatient (CLI) | payer MEDICARE ==
--- NOTE | 2020-12-02 11:56 | XRay Report ---
CHEST 2 VIEWS INDICATION: CHEST PAIN. COMPARISON: 08/19/2019 FINDINGS: Support devices: Single lead pacemaker device appears unchanged in position terminating in the right ventricle. Heart: Mild cardiomegaly has decreased since the previous exam. Lungs/pleura: No acute air space or interstitial disease. No infiltrate, pleural fluid or pneumothor ax. Additional findings: None. IMPRESSION: Decreased cardiomegaly. Lungs clear. No acute process. LEFT SHOULDER 3 VIEWS INDICATION: Left shoulder pain. COMPARISON: None. IMPRESSION: No acute osseous or soft tissue abnormality. Mild to moderate osteoarthritic changes are identified at the glenohumeral joint and AC joint. Signer Name: Wyatt Murcia Jr, MD Signed: 12/02/2020 11:52 AM Workstation Name: [id number]
== END 2020-12-02 10:48 | disposition home or self-care (01) ==
LOC: XRAY 10:47
PROVIDERS: ATTEND Nurse Practitioner
DX: M19.012 Primary osteoarthritis, left shoulder (principal); I51.7 Cardiomegaly
CPT/HCPCS: 71046